=== PATIENT | female | born 1975 | race Caucasian/White ===

== ENCOUNTER 2018-11-30 11:07 | Emergency (ER) | payer MEDICARE, OTHER ==
[~2018-11-30] VITALS: Ht 170.2 cm; Wt 75.7 kg
[~2018-11-30 11:07] MED LIST: ABILIFY30 MG PO; CIPRO500 MG PO; CYMBALTA60 MG PO; DILANTIN100 MG PO; FLAGYL500 MG PO; NEURONTIN300 MG PO; NEXIUM40 MG PO; TRAZODONE HCL100 MG PO
--- OUTSIDE RECORDS SUMMARY | 2018-11-30 11:10 | XMS REPORT ---
Author Author Deneen Penn [employer] Address Unknown Phone Unavailable Care Team Providers Care Casting Tester Name Role Phone Deneen Penn CP Unavailable Allergies No Known Allergies Problems Problem Type Condition Code Onset Dates Condition Status Problem Carpal tunnel syndrome, unspecified upper limb G56.00 Active Problem Deficiency of other specified B group vitamins E53.8 Active Problem Iron deficiency anemia, unspecified D50.9 Active Problem Pain in unspecified joint M25.50 Active Problem Peroneal tendinitis, left leg M76.72 Active Problem Vitamin D deficiency, unspecified E55.9 Active Problem Other hereditary and idiopathic neuropathies G60.8 Active Problem Pain in right foot M79.671 Active Problem Pain in left foot M79.672 Active Problem Plantar fascial fibromatosis M72.2 Active Problem Pain in unspecified foot M79.673 Active Problem Inflammatory polyarthropathy M06.4 Active Problem Bilateral primary osteoarthritis of knee M17.0 Active Problem Calcaneal spur, unspecified foot M77.30 Active Problem Pain in unspecified knee M25.569 Active Problem Tinea unguium B35.1 Active Problem Morbid (severe) obesity due to excess calories E66.01 Active Problem Other idiopathic peripheral autonomic neuropathy G90.09 Active Problem Xerosis cutis L85.3 Active Problem Pain in left shoulder M25.512 Active Problem Rheumatoid arthritis, unspecified M06.9 Active Problem Pain in right hip M25.551 Active Problem Pain in left elbow M25.522 Active Problem Excessive bleeding in the premenopausal period N92.4 Active Problem 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
--- OUTSIDE RECORDS SUMMARY | 2018-11-30 11:10 | XMS REPORT ---
Author Author Deneen Penn [employer] Address Unknown Phone Unavailable Care Team Providers Care Tank Refinisher Name Role Phone Deneen Penn CP Unavailable Allergies, Adverse Reactions, Alerts Substance Reaction Event Type Penicillin Info Not Available Drug Allergy Keflex Info Not Available Drug Allergy Demerol Info Not Available Drug Allergy Problems Problem Type Condition Code Onset Dates Condition Status Assessment Deficiency of other specified B group vitamins E53.8 Active Assessment Pain in unspecified knee M25.569 Active Assessment Vitamin D deficiency, unspecified E55.9 Active Assessment Carpal tunnel syndrome, unspecified upper limb G56.00 Active Assessment Pain in unspecified joint M25.50 Active Assessment Inflammatory polyarthropathy M06.4 Active Assessment Rheumatoid arthritis, unspecified M06.9 Active Problem Carpal tunnel syndrome, unspecified upper limb [...] G90.09 Active Problem Xerosis cutis L85.3 Active Assessment Pain in right hip M25.551 Active Problem Pain in left shoulder M25.512 Active Assessment Bilateral primary osteoarthritis of knee M17.0 Active Problem Rheumatoid arthritis, unspecified M06.9 Active Assessment Pain in left shoulder M25.512 Active Problem Pain in right hip M25.551 Active Assessment Pain in left elbow M25.522 Active Problem Pain in left elbow M25.522 Active Problem Excessive bleeding in the premenopausal period N92.4 Active Assessment Morbid (severe) obesity due to excess calories E66.01 Active Problem 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 Problem Anemia, unspecified D64.9 Active Problem Epilepsy, unspecified, not intractable, without status epilepticus G40.909 Active Medications Medication Code System Code Instructions Start Date End Date Status Dosage Lamictal [facility] 68953669742 150 MG Orally morning 3 in PM Active 2 tablets Potassium NDC 0 800 mg Orally twice a day (bid) Active 1 tablet Lasix [facility] 58634223388 40 mg Orally twice a day (bid) Active 1 tablet Klonopin [facility] 49407277239 0.5 MG Orally Twice a day Active 1 tablet Ketoconazole [facility] 42717243540 2 % Externally Once a day Active 1 application to affected area Duloxetine HCl [facility] 55058023148 60 MG Orally twice a day Active 1 capsule Iron (Ferrous Gluconate) [facility] 58888759595 256 (28 Fe) MG Orally Active not defined Omeprazole [facility] 57162469722 40 MG Orally Once a day Active 1 capsule Lexapro [facility] 22603936764 5 MG Orally Once a day Active 1 tablets Ferrous Sulfate [facility] 84046678689 325 (65 Fe) MG Orally Once a day Active 1 tablet Lac-Hydrin [facility] 33019796649 12 % Externally Twice a day Active 1 application to affected area Plaquenil [facility] 01990166939 200 MG Orally Once a day Active 2 tablets with food or milk Orencia [facility] 44717201685 250 MG Intravenous Active as directed Vitamin D [facility] 96508071493 1000 UNIT Orally Once a day Active 1 capsule Vitamin B12 [facility] 36274618483 1000 Orally Once a day Active 2 tablet Seroquel [facility] 30702170138 300 MG Orally Once a day Active 2 tablet at bedtime Ativan [facility] 60430234976 0.5 MG Orally as needed (prn) Active 1 tablet as needed Vitamin A92-Ojkdv Acid [facility] 09565600940 500-400 MCG Orally 1 Active as directed Sulfasalazine [facility] 40173046621 500 mg Orally twice a day (bid) Active 2 tablets Orencia [facility] 20537422052 250 MG Intravenous Active not defined Dilantin [facility] 10662098521 100 mg Orally three times a day (tid) Active 2 capsule Lamotrigine [facility] 91919051083 25 MG Orally Once a day Active 2 tablets Multi For Her [facility] 60866372717 - Orally Active not defined Vital Signs Date/Time: June 10, 2017 BMI 45.10 Index Weight 288 lbs Blood Pressure Systolic 140 mm Hg Respiratory Rate 16 /min Cardiac Monitoring Heart Rate 89 /min Temperature 98 F Blood Pressure Diastolic 88 mm Hg Results No Known Results Summary Purpose eClinicalWorks Submission
--- OUTSIDE RECORDS SUMMARY | 2018-11-30 11:10 | XMS REPORT | Continuity of Care Document ---
Author Author [facility] Interface Address Unknown Phone Unavailable Problems Problem Status Onset Date Classification Date Reported Comments Source Excessive bleeding in the premenopausal period Active Problem 09/18/2018 [facility] Iron deficiency anemia, unspecified Active Problem 09/18/2018 [facility] Iron deficiency anemia secondary to blood loss Active Problem 09/18/2018 [facility] Tinea unguium Active Problem 09/18/2018 [facility] Deficiency of other specified B group vitamins Active Problem 09/18/2018 [facility] Morbid obesity due to excess calories Active Problem 09/18/2018 [facility] Pain in unspecified knee Active Problem 09/18/2018 [facility] Bilateral primary osteoarthritis of knee Active Problem 09/18/2018 [facility] Xerosis cutis Active Problem 09/18/2018 [facility] Peroneal tendinitis, left leg Active Problem 09/18/2018 [facility] Other hereditary and idiopathic neuropathies Active Problem 09/18/2018 [facility] Pain in right foot Active Problem 09/18/2018 [facility] Pain in left foot Active Problem 09/18/2018 [facility] Pain in unspecified joint Active Problem 09/18/2018 [facility] Inflammatory polyarthropathy Active Problem 09/18/2018 [facility] Carpal tunnel syndrome, unspecified upper limb Active Problem 09/18/2018 [facility] Vitamin D deficiency, unspecified Active Problem 09/18/2018 [facility] Pain in right hip Active Problem 09/18/2018 [facility] Rheumatoid arthritis, unspecified Active Problem 09/18/2018 [facility] Pain in left shoulder Active Problem 09/18/2018 [facility] Epilepsy, unspecified, not intractable, without status epilepticus Active Problem 09/18/2018 [facility] Pain in left elbow Active Problem 09/18/2018 [facility] Anemia, unspecified Active Problem 09/18/2018 [facility] Plantar fascial fibromatosis Active Problem 09/18/2018 [facility] Pain in unspecified foot Active Problem 09/18/2018 [facility] Calcaneal spur, unspecified foot Active Problem 09/18/2018 [facility] Other idiopathic peripheral autonomic neuropathy Active Problem 09/18/2018 [facility] Tinea pedis of both feet Active Problem 09/20/2016 [facility] Onychomycosis Active Problem 09/20/2016 [facility] Sprain of foot, left, subsequent encounter Active Problem 09/20/2016 [facility] Idiopathic neuropathy Active Problem 09/20/2016 [facility] Chronic pain syndrome Active Problem 09/18/2018 [facility] Unilateral primary osteoarthritis, right hip Active Problem 09/18/2018 [facility] Medications Medication Details Route Status Patient Instructions Ordering Provider Order Date Source Lac-Hydrin 1 application to affected area Externally Active 12 % Externally Twice a day [facility] 05/08/2017 [facility] Vitamin [id number] Acid as directed Orally Active 500-400 MCG Orally 1 [facility] 05/08/2017 [facility] Ketoconazole 1 application to affected area Externally Active 2 % Externally Once a day [facility] 05/08/2017 [facility] Metanx 1 tablet Orally Active 3-35-2 MG Orally Twice a day [facility] 03/26/2017 [facility] Lamotrigine 2 tablets Orally Active 25 MG Orally Once a day [facility] Duloxetine HCl 1 capsule Orally Active 60 MG Orally twice a day [facility] Seroquel 2 tablet at bedtime Orally Active 300 MG Orally Once a day [facility] Dilantin 2 capsule Orally Active 100 mg Orally three times a day (tid) [facility] Ativan 1 tablet as needed Orally Active 0.5 MG Orally as needed (prn) [facility] Vitamin B12 2 tablet Orally Active 1000 Orally Once a day [facility] Lexapro 1 tablets Orally Active 5 MG Orally Once a day [facility] Lamictal 2 tablets Orally Active 150 MG Orally morning 3 in PM [facility] Plaquenil 2 tablets with food or milk Orally Active 200 MG Orally Once a day [facility] Sulfasalazine 2 tablets Orally Active 500 mg Orally twice a day (bid) [facility] Potassium 1 tablet Orally Active 800 mg Orally twice a day (bid) [facility] Omeprazole 1 capsule Orally Active 40 MG Orally Once a day [facility] Lasix 1 tablet Orally Active 40 mg Orally twice a day (bid) [facility] Orencia as directed Intravenous Active 250 MG Intravenous [facility] Vitamin D 1 capsule Orally Active 1000 UNIT Orally Once a day [facility] Ferrous Sulfate 1 tablet Orally Active 325 (65 Fe) MG Orally Once a day [facility] Ativan 1 tablet as needed Orally Active 0.5 MG Orally as needed (prn) [facility] Klonopin 1 tablet Orally Active 0.5 MG Orally Twice a day [facility] Dilantin 2 capsule Orally Active 100 mg Orally three times a day (tid) [facility] Ferrous Sulfate 1 tablet Orally Active 325 (65 Fe) MG Orally Once a day [facility] Lexapro 1 tablets Orally Active 5 MG Orally Once a day [facility] Orencia not defined Intravenous Active 250 MG Intravenous [facility] Lamictal 2 tablets Orally Active 150 MG Orally morning 3 in PM [facility] Omeprazole 1 capsule Orally Active 40 MG Orally Once a day [facility] Vitamin D 1 capsule Orally Active 1000 UNIT Orally Once a day [facility] Lasix 1 tablet Orally Active 40 mg Orally twice a day (bid) [facility] Vitamin B12 2 tablet Orally Active 1000 Orally Once a day [facility] Seroquel 2 tablet at bedtime Orally Active 300 MG Orally Once a day [facility] Lamotrigine 2 tablets Orally Active 25 MG Orally Once a day [facility] Duloxetine HCl 1 capsule Orally Active 60 MG Orally twice a day [facility] Plaquenil 2 tablets with food or milk Orally Active 200 MG Orally Once a day [facility] Sulfasalazine 2 tablets Orally Active 500 mg Orally twice a day (bid) [facility] Lasix 1 tablet Orally Active 80 MG Orally twice a day (bid) [facility] Ketoconazole 1 application to affected area Externally Active 2 % Externally Once a day [facility] Lac-Hydrin 1 application to affected area Externally Active 12 % Externally Twice a day [facility] Vitamin B05-Hklso Acid as directed Orally Active 500-400 MCG Orally 1 [facility] Iron (Ferrous Gluconate) not defined Orally Active 256 (28 Fe) MG Orally Alexa [facility] Multi For Her not defined Orally Active - Orally Alexa [facility] Allergies, Adverse Reactions, Alerts Substance Category Reaction Severity Reaction type Status Date Reported Comments Source Penicillin Adverse Reaction Info Not Available Adverse Reaction Active 08/17/2017 [facility] Keflex Adverse Reaction Info Not Available Adverse Reaction Active 08/17/2017 [facility] Demerol Adverse Reaction Info Not Available Adverse Reaction Active 08/17/2017 [facility] Immunizations Immunization Date Given Site Status Last Updated Comments Source Results Order Name Results Value Reference Range Date Interpretation Comments Source Vital Signs Vital Sign Value Date Comments Source Weight 288 08/17/2017 [facility] Systolic (mm Hg) 127 08/17/2017 [facility] Respitory Rate 18 08/17/2017 [facility] Heart Rate 80 08/17/2017 [facility] Temperature Oral (F) 97.5 F 08/17/2017 [facility] Diastolic (mm Hg) 67 08/17/2017 [facility] Weight 288 08/07/2017 [facility] Systolic (mm Hg) 120 08/07/2017 [facility] Respitory Rate 16 08/07/2017 [facility] Heart Rate 79 08/07/2017 [facility] Temperature Oral (F) 97.1 F 08/07/2017 [facility] Diastolic (mm Hg) 60 08/07/2017 [facility] Weight 288 06/10/2017 [facility] Systolic (mm Hg) 140 06/10/2017 [facility] Respitory Rate 16 06/10/2017 [facility] Heart Rate 89 06/10/2017 [facility] Temperature Oral (F) 98 F 06/10/2017 [facility] Diastolic (mm Hg) 88 06/10/2017 [facility] Weight 299 05/18/2017 [facility] Systolic (mm Hg) 138 05/18/2017 [facility] Respitory Rate 14 05/18/2017 [facility] Heart Rate 80 05/18/2017 [facility] Temperature Oral (F) 97.3 F 05/18/2017 [facility] Diastolic (mm Hg) 75 05/18/2017 [facility] Weight 288 05/11/2017 [facility] Systolic (mm Hg) 134 05/11/2017 [facility] Respitory Rate 16 05/11/2017 [facility] Heart Rate 89 05/11/2017 [facility] Temperature Oral (F) 98 F 05/11/2017 [facility] Diastolic (mm Hg) 65 05/11/2017 [facility] Weight 297 04/10/2017 [facility] Systolic (mm Hg) 133 04/10/2017 [facility] Respitory Rate 16 04/10/2017 [facility] Heart Rate 94 04/10/2017 [facility] Temperature Oral (F) 97.7 F 04/10/2017 [facility] Diastolic (mm Hg) 73 04/10/2017 [facility] Weight 300 03/23/2017 [facility] Systolic (mm Hg) 131 03/23/2017 [facility] Respitory Rate 18 03/23/2017 [facility] Heart Rate 76 03/23/2017 [facility] Temperature Oral (F) 97.5 F 03/23/2017 [facility] Diastolic (mm Hg) 70 03/23/2017 [facility] Encounters Location Location Details Encounter Type Encounter Number Reason For Visit Attending Provider ADM Date DC Date Status Source [facility] degenerative changes in my foot [id number] 09/18/2016 09/18/2016 [facility] Procedures Procedure Code Date Perfomer Comments Source
--- OUTSIDE RECORDS SUMMARY | 2018-11-30 11:10 | XMS REPORT ---
Author Author Deneen Penn [employer] Address Unknown Phone Unavailable Care Team Providers Care Wood Router Hand Name Role Phone Deneen Penn CP Unavailable Allergies, Adverse Reactions, Alerts Substance Reaction Event Type Penicillin Info Not Available Drug Allergy Keflex Info Not Available Drug Allergy Demerol Info Not Available Drug Allergy Problems Problem Type Condition Code Onset Dates Condition Status Assessment Morbid (severe) obesity due to excess calories E66.01 Active Assessment Pain in left elbow M25.522 Active Assessment Pain in left shoulder M25.512 Active Assessment Pain in right hip M25.551 Active Assessment Bilateral primary osteoarthritis of knee M17.0 Active Assessment Pain in unspecified knee M25.569 Active Assessment Deficiency of other specified B group vitamins E53.8 Active Assessment Carpal tunnel syndrome, unspecified upper limb G56.00 Active Problem Pain in right hip M25.551 Active Assessment Vitamin D deficiency, unspecified E55.9 Active Problem Rheumatoid arthritis, unspecified M06.9 Active Assessment Pain in unspecified joint M25.50 Active Problem Epilepsy, unspecified, not intractable, without status epilepticus G40.909 Active Problem Excessive bleeding in the premenopausal period N92.4 Active Problem Anemia, unspecified D64.9 Active Problem Pain in right foot M79.671 Active Problem Pain in left foot M79.672 Active Problem Bilateral primary osteoarthritis of knee M17.0 Active Assessment Rheumatoid arthritis, unspecified M06.9 Active Problem Morbid (severe) obesity due to excess calories E66.01 Active Assessment Inflammatory polyarthropathy M06.4 Active Problem Iron deficiency anemia, unspecified D50.9 Active Problem 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 Problem Peroneal tendinitis, left leg M76.72 Active Problem Other hereditary and idiopathic neuropathies G60.8 Active Problem Carpal tunnel syndrome, unspecified upper limb G56.00 Active Problem Vitamin D deficiency, unspecified E55.9 Active Problem Pain in unspecified knee M25.569 Active Problem Deficiency of other specified B group vitamins E53.8 Active Problem Pain in left shoulder M25.512 Active Problem Pain in left elbow M25.522 Active Problem Pain in unspecified joint M25.50 Active Problem Inflammatory polyarthropathy M06.4 Active Medications Medication Code System Code Instructions Start Date End Date Status Dosage Orencia [facility] [address]-81 250 MG Intravenous Active as directed Sulfasalazine [facility] [address]-29 500 mg Orally twice a day (bid) Active 2 tablets Lamotrigine [facility] [address]-11 25 MG Orally Once a day Active 2 tablets Seroquel [facility] [address]-55 300 MG Orally Once a day Active 2 tablet at bedtime Vitamin B12 [facility] 22766-11323 1000 Orally Once a day Active 2 tablet Orencia [facility] [address]-28 250 MG Intravenous Active not defined Ferrous Sulfate [facility] [address]-53 325 (65 Fe) MG Orally Once a day Active 1 tablet Lasix [facility] [address]-84 40 mg Orally twice a day (bid) Active 1 tablet Potassium NDC 0 800 mg Orally twice a day (bid) Active 1 tablet Ativan [facility] [address]-61 0.5 MG Orally as needed (prn) Active 1 tablet as needed Dilantin [facility] [address]-79 100 mg Orally three times a day (tid) Active 2 capsule Vitamin D [facility] 68642-87703 1000 UNIT Orally Once a day Active 1 capsule Metanx [facility] [address]-46 3-35-2 MG Orally Twice a day March 26, 2017 April 25, 2017 Active 1 tablet Lamictal [facility] [address]-28 150 MG Orally morning 3 in PM Active 2 tablets Lexapro [facility] [address]-28 5 MG Orally Once a day Active 1 tablets Duloxetine HCl [facility] [address]-78 60 MG Orally twice a day Active 1 capsule Plaquenil [facility] [address]-51 200 MG Orally Once a day Active 2 tablets with food or milk Omeprazole [facility] [address]-86 40 MG Orally Once a day Active 1 capsule Vital Signs Date/Time: April 10, 2017 BMI 46.51 Index Weight 297 lbs Blood Pressure Systolic 133 mm Hg Respiratory Rate 16 /min Cardiac Monitoring Heart Rate 94 /min Temperature 97.7 F Blood Pressure Diastolic 73 mm Hg Results No Known Results Summary Purpose eClinicalWorks Submission
--- OUTSIDE RECORDS SUMMARY | 2018-11-30 11:10 | XMS REPORT ---
Author Author Vick Liu [facility] [place] eClinicalWorks Address Unknown Phone Unavailable Care Team Providers Care Hoist Operator Name Role Phone Vick Liu CP Unavailable Allergies, Adverse Reactions, Alerts Substance Reaction Event Type Penicillin Info Not Available Drug Allergy Keflex Info Not Available Drug Allergy Demerol Info Not Available Drug Allergy Problems Problem Type Condition Code Onset Dates Condition Status Assessment Iron deficiency anemia, unspecified D50.9 Active Problem Carpal tunnel syndrome, unspecified upper [...] Instructions Start Date End Date Status Dosage Ativan [facility] 53662058675 0.5 MG Orally as needed (prn) Active 1 tablet as needed Klonopin [facility] 63263241946 0.5 MG Orally Twice a day Active 1 tablet Lac-Hydrin [facility] 80372912395 12 % Externally Twice a day May 08, 2017 Nov 04, 2017 Active 1 application to affected area Dilantin [facility] 46494502321 100 mg Orally three times a day (tid) Active 2 capsule Ferrous Sulfate [facility] 36446046092 325 (65 Fe) MG Orally Once a day Active 1 tablet Lexapro [facility] 18097245237 5 MG Orally Once a day Active 1 tablets Orencia [facility] 61333425637 250 MG Intravenous Active as directed Orencia [facility] 94556710311 250 MG Intravenous Active not defined Lamictal [facility] 45734840671 150 MG Orally morning 3 in PM Active 2 tablets Omeprazole [facility] 33941401447 40 MG Orally Once a day Active 1 capsule Vitamin V92-Sxmit Acid [facility] 19969260703 500-400 MCG Orally 1 May 08, 2017 Nov 04, 2017 Active as directed Vitamin D [facility] 30743223409 1000 UNIT Orally Once a day Active 1 capsule Lasix [facility] 96527827709 40 mg Orally twice a day (bid) Active 1 tablet Potassium NDC 0 800 mg Orally twice a day (bid) Active 1 tablet Vitamin B12 [facility] 39742028154 1000 Orally Once a day Active 2 tablet Seroquel [facility] 72473002622 300 MG Orally Once a day Active 2 tablet at bedtime Ketoconazole [facility] 16929801960 2 % Externally Once a day May 08, 2017 Nov 04, 2017 Active 1 application to affected area Lamotrigine [facility] 66043945741 25 MG Orally Once a day Active 2 tablets Duloxetine HCl [facility] 77961123852 60 MG Orally twice a day Active 1 capsule Vital Signs Date/Time: May 18, 2017 BMI 46.82 Index Weight 299 lbs Blood Pressure Systolic 138 mm Hg Respiratory Rate 14 /min Cardiac Monitoring Heart Rate 80 /min Temperature 97.3 F Blood Pressure Diastolic 75 mm Hg Results No Known Results Summary Purpose eClinicalWorks Submission
--- OUTSIDE RECORDS SUMMARY | 2018-11-30 11:10 | XMS REPORT ---
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 Problem Tinea unguium B35.1 Active Problem Deficiency of other specified B group vitamins E53.8 Active Problem Morbid (severe) obesity due to excess calories E66.01 Active Problem Pain in unspecified knee M25.569 Active Problem Bilateral primary osteoarthritis of knee M17.0 Active Problem Xerosis cutis L85.3 Active Problem Peroneal tendinitis, left leg M76.72 Active Problem Other hereditary and idiopathic neuropathies G60.8 Active Problem Pain in right foot M79.671 Active Problem Pain in left foot M79.672 Active Problem Pain in unspecified joint M25.50 Active Problem Inflammatory polyarthropathy M06.4 Active Problem Carpal tunnel syndrome, unspecified upper limb G56.00 Active Problem Vitamin D deficiency, unspecified E55.9 Active Problem Pain in right hip M25.551 Active Problem Rheumatoid arthritis, unspecified M06.9 Active Problem Pain in left shoulder M25.512 Active Problem Epilepsy, unspecified, not intractable, without status epilepticus G40.909 Active Problem Pain in left elbow M25.522 Active Problem Anemia, unspecified D64.9 Active Medications Medication Code System Code Instructions Start Date End Date Status Dosage Metanx [facility] [address]-35 3-35-2 MG Orally Twice a day March 26, 2017 April 25, 2017 Active 1 tablet Results No Known Results Summary Purpose eClinicalWorks Submission
--- OUTSIDE RECORDS SUMMARY | 2018-11-30 11:10 | XMS REPORT ---
Author Author Vick Liu [facility] eClinicalWorks Address Unknown Phone Unavailable Care Team Providers Care Deep Submergence Vehicle Crewmember Name Role Phone Vick Liu CP Unavailable Allergies, Adverse Reactions, Alerts Substance Reaction Event Type Penicillin Info Not Available Drug Allergy Keflex Info Not Available Drug Allergy Demerol Info Not Available Drug Allergy Problems Problem Type Condition Code Onset Dates Condition Status Problem Pain in left elbow M25.522 Active Problem Rheumatoid arthritis, unspecified M06.9 Active Problem Pain in right hip M25.551 Active Problem Other hereditary and idiopathic neuropathies G60.8 Active Problem Iron deficiency anemia, unspecified D50.9 Active Problem Pain in right foot M79.671 Active Problem Anemia, unspecified D64.9 Active Problem Epilepsy, unspecified, not intractable, without status epilepticus G40.909 Active Problem 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 Problem Excessive bleeding in the premenopausal period N92.4 Active Problem Bilateral primary osteoarthritis of knee M17.0 Active Problem Pain in unspecified knee M25.569 Active Assessment Iron deficiency anemia, unspecified D50.9 Active Problem Vitamin D deficiency, unspecified E55.9 Active Problem Pain in unspecified joint M25.50 Active Problem Deficiency of other specified B group vitamins E53.8 Active Problem Inflammatory polyarthropathy M06.4 Active Problem Carpal tunnel syndrome, unspecified upper limb G56.00 Active Problem Pain in left shoulder M25.512 Active Medications Medication Code System Code Instructions Start Date End Date Status Dosage Lamotrigine [facility] [address]-10 25 MG Orally Once a day Active 2 tablets Duloxetine HCl [facility] [address]-14 60 MG Orally twice a day Active 1 capsule Seroquel [facility] [address]-31 300 MG Orally Once a day Active 2 tablet at bedtime Dilantin [facility] [address]-78 100 mg Orally three times a day (tid) Active 2 capsule Ativan [facility] [address]-80 0.5 MG Orally as needed (prn) Active 1 tablet as needed Vitamin B12 [facility] 9[address] 1000 Orally Once a day Active 2 tablet Lexapro [facility] [address]-84 5 MG Orally Once a day Active 1 tablets Lamictal [facility] [address]-67 150 MG Orally morning 3 in PM Active 2 tablets Plaquenil [facility] [address]-38 200 MG Orally Once a day Active 2 tablets with food or milk Sulfasalazine [facility] [address]-39 500 mg Orally twice a day (bid) Active 2 tablets Potassium NDC 0 800 mg Orally twice a day (bid) Active 1 tablet Omeprazole [facility] [address]-44 40 MG Orally Once a day Active 1 capsule Lasix [facility] [address]-10 40 mg Orally twice a day (bid) Active 1 tablet Orencia [facility] [address]-04 250 MG Intravenous Active not defined Vitamin D [facility] [address] 1000 UNIT Orally Once a day Active 1 capsule Ferrous Sulfate [facility] [address]-47 325 (65 Fe) MG Orally Once a day Active 1 tablet Vital Signs Date/Time: March 23, 2017 BMI 46.98 Index Weight 300 lbs Blood Pressure Systolic 131 mm Hg Respiratory Rate 18 /min Cardiac Monitoring Heart Rate 76 /min Temperature 97.5 F Blood Pressure Diastolic 70 mm Hg Results No Known Results Summary Purpose eClinicalWorks Submission
--- OUTSIDE RECORDS SUMMARY | 2018-11-30 11:10 | XMS REPORT ---
Author Author Deneen Penn eClinicalWorks Address Unknown Phone Unavailable Care Team Providers Care Sports Marketing Internship Name Role Phone Deneen Penn CP Unavailable Allergies, Adverse Reactions, Alerts Substance Reaction Event Type Penicillin Info Not Available Drug Allergy Keflex Info Not Available Drug Allergy Demerol Info Not Available Drug Allergy Problems Problem Type Condition Code Onset Dates Condition Status Assessment Bilateral primary osteoarthritis of knee M17.0 Active Assessment Pain in right hip M25.551 Active Assessment Deficiency of other specified B group vitamins E53.8 Active Assessment Pain in unspecified knee M25.569 Active Assessment Carpal tunnel syndrome, unspecified upper limb G56.00 Active Assessment Vitamin D deficiency, unspecified E55.9 Active Assessment Pain in unspecified joint M25.50 Active Assessment Inflammatory polyarthropathy M06.4 Active Assessment Rheumatoid arthritis, unspecified M06.9 Active Problem Excessive bleeding in the premenopausal period N92.4 Active Problem Carpal tunnel syndrome, unspecified upper limb G56.00 Active Problem 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 Problem Deficiency of other specified B group vitamins E53.8 Active Problem Iron deficiency anemia, unspecified D50.9 Active Problem Pain in right foot M79.671 Active Problem Pain in left foot M79.672 Active Problem Pain in unspecified foot M79.673 Active Problem Xerosis cutis L85.3 Active Problem Pain in unspecified knee M25.569 Active Problem Vitamin D deficiency, unspecified E55.9 Active Problem Other idiopathic peripheral autonomic neuropathy G90.09 Active Problem Pain in unspecified joint M25.50 Active Problem Other hereditary and idiopathic neuropathies G60.8 Active Problem Peroneal tendinitis, left leg M76.72 Active Problem Tinea unguium B35.1 Active Problem Morbid (severe) obesity due to excess calories E66.01 Active Assessment Pain in left shoulder M25.512 Active Problem Pain in right hip M25.551 Active Assessment Pain in left elbow M25.522 Active Problem Pain in left elbow M25.522 Active Problem Bilateral primary osteoarthritis of knee M17.0 Active Assessment Morbid (severe) obesity due to excess calories E66.01 Active Problem Inflammatory polyarthropathy M06.4 Active Problem Anemia, unspecified D64.9 Active Problem Epilepsy, unspecified, not intractable, without status epilepticus G40.909 Active Problem Pain in left shoulder M25.512 Active Problem Rheumatoid arthritis, unspecified M06.9 Active Medications Medication Code System Code Instructions Start Date End Date Status Dosage Dilantin [facility] 00935858158 100 mg Orally three times a day (tid) Active 2 capsule Lamictal [facility] 01779750572 150 MG Orally morning 3 in PM Active 2 tablets Seroquel [facility] 53653116667 300 MG Orally Once a day Active 2 tablet at bedtime Lasix [facility] 72765079855 40 mg Orally twice a day (bid) Active 1 tablet Vitamin O71-Nutwy Acid [facility] 35163682369 500-400 MCG Orally 1 May 08, 2017 Nov 04, 2017 Active as directed Orencia [facility] 00117708139 250 MG Intravenous Active as directed Ketoconazole [facility] 95257543333 2 % Externally Once a day May 08, 2017 Nov 04, 2017 Active 1 application to affected area Ativan [facility] 37761484904 0.5 MG Orally as needed (prn) Active 1 tablet as needed Duloxetine HCl [facility] 29585954528 60 MG Orally twice a day Active 1 capsule Orencia [facility] 80476814736 250 MG Intravenous Active not defined Plaquenil [place] 90084741116 200 MG Orally Once a day Active 2 tablets with food or milk Sulfasalazine ND 26269398649 500 mg Orally twice a day (bid) Active 2 tablets Vitamin D [facility] 14397888786 1000 UNIT Orally Once a day Active 1 capsule Klonopin [place] 68720779673 0.5 MG Orally Twice a day Active 1 tablet Omeprazole ND 95867141582 40 MG Orally Once a day Active 1 capsule Lexapro ND 55974798221 5 MG Orally Once a day Active 1 tablets Vitamin B12 [facility] 56116472209 1000 Orally Once a day Active 2 tablet Ferrous Sulfate [facility] 85515003994 325 (65 Fe) MG Orally Once a day Active 1 tablet Potassium NDC 0 800 mg Orally twice a day (bid) Active 1 tablet Lamotrigine [facility] 32537637119 25 MG Orally Once a day Active 2 tablets Lac-Hydrin [facility] 55625706831 12 % Externally Twice a day May 08, 2017 Nov 04, 2017 Active 1 application to affected area Vital Signs Date/Time: May 11, 2017 BMI 45.10 Index Weight 288 lbs Blood Pressure Systolic 134 mm Hg Respiratory Rate 16 /min Cardiac Monitoring Heart Rate 89 /min Temperature 98 F Blood Pressure Diastolic 65 mm Hg Results No Known Results Summary Purpose eClinicalWorks Submission
--- OUTSIDE RECORDS SUMMARY | 2018-11-30 11:11 | XMS REPORT ---
Author Author Deneen Penn eClinicalWorks Address Unknown Phone Unavailable Care Team Providers Care Professor Of Environmental Science Name Role Phone Deneen Penn CP Unavailable [...] Start Date End Date Status Dosage Dilantin [facility] 17727238518 100 mg Orally three times a day (tid) Active [address] [facility] 01877087302 5 MG Orally Once a day Active [address] [facility] 22475514991 80 MG Orally twice a day (bid) Active [address] [facility] 21284274582 0.5 MG Orally Twice a day Active [address] [facility] 25595702655 2 % Externally Once a day Active 1 application to affected area Ferrous Sulfate [facility] 51765945957 325 (65 Fe) MG Orally Once a day Active [address] [facility] 66230777842 250 MG Intravenous Active as directed Omeprazole [facility] 43723903881 40 MG Orally Once a day Active 1 capsule Potassium [place] 0 800 mg Orally twice a day (bid) Active 1 tablet Vitamin D [facility] 66073569670 1000 UNIT Orally Once a day Active 1 capsule Lac-Hydrin [facility] 58444149902 12 % Externally Twice a day Active 1 application to affected area Plaquenil [facility] 67224271452 200 MG Orally Once a day Active 2 tablets with food or milk Vitamin B12 [facility] 52751901962 1000 Orally Once a day Active 2 tablet Vitamin N50-Hhwmb Acid [facility] 36377646667 500-400 MCG Orally 1 Active as directed Duloxetine HCl [facility] 44844090977 60 MG Orally twice a day Active [address] [facility] 34628162999 300 MG Orally Once a day Active 2 tablet at bedtime Ativan [facility] 33109288253 0.5 MG Orally as needed (prn) Active 1 tablet as needed Iron (Ferrous Gluconate) [facility] 33222996423 256 (28 Fe) MG Orally Active not defined Sulfasalazine [facility] 67851951325 500 mg Orally twice a day (bid) Active [address] [facility] 19064835511 250 MG Intravenous Active not defined Lamictal [facility] 44373276195 150 MG Orally morning 3 in PM Active [address] [facility] 40873866959 25 MG Orally Once a day Active 2 tablets Multi For Her [facility] 71806288647 - Orally Active not defined Vital Signs Date/Time: Aug 07, 2017 BMI 45.10 Index Weight 288 lbs Blood Pressure Systolic 120 mm Hg Respiratory Rate 16 /min Cardiac Monitoring Heart Rate 79 /min Temperature 97.1 F Blood Pressure Diastolic 60 mm Hg Results No Known Results Summary Purpose eClinicalWorks Submission
--- OUTSIDE RECORDS SUMMARY | 2018-11-30 11:11 | XMS REPORT ---
Author Author [facility] Address Unknown Phone Unavailable Care Team Providers Care Landscaper Name Role Phone Unavailable Unavailable Payers Payer Name Policy Type Policy Number Effective Date Expiration Date Problems This patient has no known problems. Allergies, Adverse Reactions, Alerts Allergy Name Allergy Type Status Severity Reaction(s) Onset Date Inactive Date Treating Clinician Comments meperidine HCl DA Active 2018-02-14 00:00:00 Penicillins DA Active SV 2018-02-14 00:00:00 cephalexin DA Active SV 2018-02-14 00:00:00 amoxicillin DA Active SV 2018-02-14 00:00:00 ADHESIVES DA Active 2017-10-09 00:00:00 Medications This patient has no known medications.
--- OUTSIDE RECORDS SUMMARY | 2018-11-30 11:11 | XMS REPORT ---
Author Author Eddie Walton Organization eClinicalWorks Address Unknown Phone Unavailable Care Team Providers Care Lead Network Architect Name Role Phone Eddie Walton CP Unavailable [...]
--- OUTSIDE RECORDS SUMMARY | 2018-11-30 11:11 | XMS REPORT ---
Author Author Quinton Julian [facility] eClinicalWorks Address Unknown Phone Unavailable Care Team Providers Care Oil Extractor Name Role Phone Quinton Julian Unavailable Encounters Encounter Location Date degenerative changes in my foot [facility] Sep 18, 2016 Problems Problem Type Condition ICD-9 Code Onset Dates Condition Status Problem Tinea pedis of both feet B35.3 Active Problem Onychomycosis B35.1 Active Problem Sprain of foot, left, subsequent encounter S93.602D Active Problem Idiopathic neuropathy G60.9 Active Problem Morbid obesity due to excess calories E66.01 Active Social History Social History Element Qualifiers Date Reported Do you smoke? . Answer: Yes Sep 19, 2016 Do you drink alcohol? . Status: No Sep 19, 2016 Occupation: . Disabled Sep 19, 2016 Family history Qualifier Description Comment Date Reported Maternal Grandmother Comment not available Sep 19, 2016 Paternal Grandmother Comment not available Sep 19, 2016 Siblings Comment not available Sep 19, 2016 Maternal Grandfather Comment not available Sep 19, 2016 Children Comment not available Sep 19, 2016 Adopted Comment not available Sep 19, 2016 Father heart disease Sep 19, 2016 Paternal Grandfather Comment not available Sep 19, 2016 Mother diabetes , heart disease Sep 19, 2016 Other: Comment not available Sep 19, 2016 Summary Purpose eClinicalWorks Submission
--- OUTSIDE RECORDS SUMMARY | 2018-11-30 11:11 | XMS REPORT ---
Author Author Vick Liu [facility] eClinicalWorks Address Unknown Phone Unavailable Care Team Providers Care Run Lead Name Role Phone Vick Liu CP Unavailable [...] Instructions Start Date End Date Status Dosage Duloxetine HCl [facility] 83783668419 60 MG Orally twice a day Active 1 capsule Iron (Ferrous Gluconate) [facility] 00153692344 256 (28 Fe) MG Orally Active not defined Lamotrigine [facility] 92189680987 25 MG Orally Once a day Active 2 tablets Dilantin [facility] 65494537326 100 mg Orally three times a day (tid) Active 2 capsule Potassium NDC 0 800 mg Orally twice a day (bid) Active 1 tablet Klonopin [facility] 90426806494 0.5 MG Orally Twice a day Active 1 tablet Lexapro [facility] 24818049484 5 MG Orally Once a day Active 1 tablets Orencia [facility] 91928718979 250 MG Intravenous Active not defined Ativan [facility] 49885611719 0.5 MG Orally as needed (prn) Active 1 tablet as needed Seroquel [facility] 92439998186 300 MG Orally Once a day Active 2 tablet at bedtime Lac-Hydrin [facility] 84453719157 12 % Externally Twice a day Active 1 application to affected area Ketoconazole [facility] 91406573128 2 % Externally Once a day Active 1 application to affected area Lamictal [facility] 41198741555 150 MG Orally morning 3 in PM Active 2 tablets Lasix [facility] 32509917599 80 MG Orally twice a day (bid) Active 1 tablet Orencia [facility] 20781971453 250 MG Intravenous Active as directed Multi For Her [facility] 85913140756 - Orally Active not defined Omeprazole [facility] 24355526175 40 MG Orally Once a day Active 1 capsule Vital Signs Date/Time: Aug 17, 2017 BMI 45.10 Index Weight 288 lbs Blood Pressure Systolic 127 mm Hg Respiratory Rate 18 /min Cardiac Monitoring Heart Rate 80 /min Temperature 97.5 F Blood Pressure Diastolic 67 mm Hg Results No Known Results Summary Purpose eClinicalWorks Submission
--- OUTSIDE RECORDS SUMMARY | 2018-11-30 11:11 | XMS REPORT ---
Author Author Vick Liu Organization eClinicalWorks Address Unknown Phone Unavailable Care Team Providers Care Optical Element Coater Name Role Phone Vick Liu CP Unavailable Allergies No Known Allergies Problems Problem Type Condition Code Onset Dates Condition Status Problem Carpal tunnel syndrome, unspecified upper limb G56.00 Active Problem Deficiency of other specified B group vitamins E53.8 Active Problem Pain in unspecified joint M25.50 Active Problem Vitamin D deficiency, unspecified E55.9 Active Problem Pain in unspecified knee M25.569 Active Problem Pain in left foot M79.672 Active Problem Bilateral primary osteoarthritis of knee M17.0 Active Problem Pain in right foot M79.671 Active Problem Inflammatory polyarthropathy M06.4 Active Problem Morbid (severe) obesity due to excess calories E66.01 Active Problem Xerosis cutis L85.3 Active Problem Tinea unguium B35.1 Active Problem Chronic pain syndrome G89.4 Active Problem Chronic pain syndrome G89.4 Active Problem Pain in left shoulder M25.512 Active Problem Pain in left elbow M25.522 Active Problem Unilateral primary osteoarthritis, right hip M16.11 Active Problem Pain in right hip M25.551 Active Problem Pain in unspecified foot M79.673 Active Problem Other idiopathic peripheral autonomic neuropathy G90.09 Active Problem Plantar fascial fibromatosis M72.2 Active Problem Calcaneal spur, unspecified foot M77.30 Active Problem Epilepsy, unspecified, not intractable, without status epilepticus G40.909 Active Problem Excessive bleeding in the premenopausal period N92.4 Active Problem Rheumatoid arthritis, unspecified M06.9 Active Problem Anemia, unspecified D64.9 Active Problem Peroneal tendinitis, left leg M76.72 Active Problem 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
[2018-11-30] MEDS ORDERED: LORAZEPAM 1 MG TAB PO ONE (11:45)
[2018-11-30 12:53] VITALS: BP 112/70
== END 2018-11-30 13:10 | disposition home or self-care (01) ==
LOC: FSED 11:07
DX: G25.0 Essential tremor (principal); G40.909 Epilepsy, unspecified, not intractable, without status epilepticus; F31.9 Bipolar disorder, unspecified; M06.9 Rheumatoid arthritis, unspecified
CPT/HCPCS: 99282

== ENCOUNTER 2018-12-07 09:38 | Emergency (ER) | payer MEDICARE, OTHER ==
[~2018-12-07] VITALS: Ht 170.2 cm; Wt 75.7 kg
[2018-12-07] MEDS ORDERED: TETANUS/DIPHTHERIA TOX ADULT 0.5 ML SYR IM ONE (10:00)
--- NOTE | 2018-12-07 10:16 | Diagnostic Imaging Report ---
Exam: Left Hand Series. History: Trauma to base of thumb by dog Comparison: None. Findings: No evidence of acute fracture or malalignment. There is soft tissue edema in the thumb, index finger, and thenar eminence. No evidence of radiopaque foreign body. Impression: No acute osseous abnormality. Soft tissue edema at the thumb, index finger, and thenar eminence. Signed by: Dr. Aspen Irvin MD on 12/07/2018 10:13 AM
[2018-12-07] MEDS ORDERED: CLINDAMYCIN HC150 MG PO (10:30)
[2018-12-07 11:12] VITALS: BP 133/79
== END 2018-12-07 11:06 | disposition home or self-care (01) ==
LOC: FSED 09:38
DX: S60.222A Contusion of left hand, initial encounter (principal); S60.512A Abrasion of left hand, initial encounter; W22.09XA Striking against other stationary object, initial encounter; Y92.007 Garden or yard of unspecified non-institutional (private) residence as the place of occurrence of the external cause; F17.210 Nicotine dependence, cigarettes, uncomplicated
CPT/HCPCS: 90714; 99282

== ENCOUNTER 2020-10-12 14:39 | Emergency (ER) | payer MEDICARE, OTHER ==
[~2020-10-12] VITALS: Ht 170.2 cm; Wt 95.5 kg
[~2020-10-12 14:39] MED LIST changes: +CLINDAMYCIN HC150 MG PO
--- NOTE | 2020-10-12 15:14 | Emergency Department Note ---
History of Present Illnes History of Present Illness Chief Complaint: left hip/posterior thigh pain s/p slip and fall History of Present Illness This is a 44 year old female . Historian: Patient Arrival Mode: Car History limited by: condition of the patient (normal) Medical Manager Required: No Onset (how long ago): day(s) (1) Location: left hip Quality: sharp Radiation: Reports non-radiation Severity: moderate Onset quality: sudden Duration (how long): day(s) (1) Timing of current episode: constant Progression: unchanged Chronicity: new Context: Reports trauma/injury; Denies recent illness, Denies recent surgery, Denies recent immobilization, Denies recent travel, Denies new medications, Denies hx of DVT/PE, Denies non- compliance w/ medications Relieving factors: none Exacerbating factors: movement Associated symptoms: Reports denies other symptoms Treatments prior to arrival: none Past Medical/Family History Physician Review I have reviewed the patient's past medical and family history. Any updates have been documented here. Past Medical History Recent Fever: No Clinical Suspicion of Infectio: No New/Unexplained Change in Ment: No Past Medical History: Seizure Disorder, Other Mental Illness Other Medical History: RA epilepsy bipolar Past Surgical History: Cholecysctectomy, Tubal Ligation, , Lumpectomy, Bariatric Surgery, Colon Resection Other Surgery: shoulder surgery Social History Smoking Cessation: Current every day smoker Counseling Performed: Yes Alcohol Use: None Any Illegal Drug Use: No Physically hurt or threatened: No Other Last Tetanus: unk Any Pre-Existing Lines (PICC,: No Review of Systems Review of Systems Constitutional: Reports no symptoms EENTM: Reports no symptoms Cardiovascular: Reports no symptoms Respiratory: Reports no symptoms Gastrointestinal: Reports no symptoms Genitourinary: Reports no symptoms Musculoskeletal: Reports as per HPI Integumentary: Reports no symptoms Neurological: Reports no symptoms Psychological: Reports no symptoms Endocrine: Reports no symptoms Hematological/Lymphatic: Reports no symptoms Review of other systems: All other systems negative Physical Exam Related Data Allergies: Coded Allergies: Cephalexin Monohydrate (Verified Allergy, Intermediate, HIVES, 09/04/13) Penicillins (Verified Allergy, Intermediate, HIVES, 09/04/13) ketamine (Verified Allergy, Unknown, 10/12/20) meperidine HCl (Verified Allergy, Unknown, SEIZURES, 10/6/13) Uncoded Allergies: cillins (Allergy, Intermediate, rash/hives, 10/12/20) Triage Vital Signs Vital Signs Date Time Temp Pulse Resp B/P (MAP) Pulse Ox O2 Delivery O2 Flow Rate FiO2 10/12/20 14:45 99.0 82 18 121/69 99 Room Air Vital signs reviewed: Yes Physical Exam CONSTITUTIONAL Constitutional: Present well-developed, Present well-nourished HENT HENT: Present normocephalic, Present atraumatic, Present oropharynx clear/moist, Present nose normal HENT L/R: Present left ext ear normal, Present right ext ear normal EYES Eyes: Reports PERRL, Reports conjunctivae normal NECK Neck: Present ROM normal PULMONARY Pulmonary: Present effort normal, Present breath sounds normal CARDIOVASCULAR Cardiovascular: Present regular rhythm, Present heart sounds normal, Present capillary refill normal, Present normal rate GASTROINTESTINAL Abdominal: Present soft, Present nontender, Present bowel sounds normal GENITOURINARY Genitourinary: Present exam deferred SKIN Skin: Present warm, Present dry MUSCULOSKELETAL Musculoskeletal: Present ROM normal, Present tenderness (left hip/superior and posterior quadricep) NEUROLOGICAL Neurological: Present alert, Present oriented x 3, Present no gross motor or sensory deficits PSYCHOLOGICAL Psychological: Present mood/affect normal, Present judgement normal Results Imaging Imaging results reviewed: Yes Impressions [place] [id number] Patient Name: SAFIA CHAIREZ MR #: [id number] : 1975 Age/Sex: 44/F Req #: [id number] Adm Physician: Ordered by: JUAN WOODS Report #: [id number] Location: [facility] Room/Bed: Procedure: [id number] HOPD/FEMUR 2VIEW LT - [facility] Exam Date: 10/12/20 Exam Time: 1528 REPORT STATUS: Signed EXAM: FEMUR 2VIEW LT - H[facility], HIP 2VW LT W/PELVIS - HOPD DATE: 10/12/2020 3:28 PM INDICATION: Fall COMPARISON: None FINDINGS: There is no evidence for acute fracture or dislocation within the pelvis, left hip, or left femur. The femoral heads maintain a normal relationship with the acetabula. The surrounding soft tissues are unremarkable without evidence for radiopaque foreign body. Phleboliths are noted within the pelvis. IMPRESSION: No acute radiographic abnormality identified within the pelvis, left hip, or left femur. Signed by: Dr. Cory Muse MD on 10/12/2020 3:45 PM Dictated By: CORY MUSE MD 44 Transcribed By: KELLIE on 10/12/201544 COPY TO: JUAN WOODS~ Assessment & Plan Medical Decision Making MDM contusion, fracture Assessment & Plan Final Impression: (1) Contusion Depart Disposition: HOME, SELF-CARE Last Vital Signs Date Time Temp Pulse Resp B/P (MAP) Pulse Ox O2 Delivery O2 Flow Rate FiO2 10/12/20 14:45 99.0 82 18 121/69 99 Room Air Home Meds Active Scripts Cyclobenzaprine Hcl (FLEXERIL) 5 Mg Tablet, 10 MG PO Q8H PRN for MUSCLE SPASMS, #30 TAB TAKE AFTER PREDNISONE TO CONTROL PAIN IF NEEDED Prov:JUAN WOODS 10/12/20 Prednisone (PREDNISONE) 20 Mg Tab, 60 MG PO DAILY PRN for MODERATE PAIN (4-6), #15 TAB take all 3 pills at once PRN PAIN Prov:JUAN WOODS 10/12/20 Clindamycin Hcl (CLINDAMYCIN HCL) 150 Mg Capsule, 300 MG PO QID for 7 Days, #30 Prov:ROSARIO HERNANDEZ MD 12/07/18 Reported Medications Ciprofloxacin Hcl (CIPRO) 500 Mg Tablet, 1 TAB PO BID 09/04/13 Metronidazole (FLAGYL) 500 Mg Tablet, 1 TAB PO TID 09/04/13 Esomeprazole Magnesium (NEXIUM) 40 Mg Capsule., 1 CAP PO RDAILY 09/04/13 Gabapentin (NEURONTIN) 300 Mg Capsule, 1 CAP PO BID 09/04/13 Phenytoin Sodium Extended (DILANTIN) 100 Mg Capsule, 6 CAP PO RDAILY 09/04/13 Trazodone Hcl (TRAZODONE HCL) 100 Mg Tablet, 1 TAB PO RDAILY 09/04/13 Duloxetine Hcl (CYMBALTA) 60 Mg Capsule.dr, 1 CAP PO RDAILY 09/04/13 Aripiprazole (ABILIFY) 30 Mg Tablet, 1 TAB PO RDAILY 09/04/13 Medications in the ED Ketorolac Tromethamine 60 mg ONCE ONCE IM ; Start 10/12/20 at 15:15; Stop 10/12/20 at 15:16; Status UNJUAN WILLOUGHBY Oct 12, 2020 15:14
[2020-10-12] MEDS ORDERED: KETOROLAC TROMETHAMINE 60 MG/2 ML VIAL IM ONE (15:15)
[2020-10-12] MEDS ORDERED: KETOROLAC TROMETHAMINE 60 MG/2 ML VIAL ONE (15:18)
--- NOTE | 2020-10-12 15:49 | Diagnostic Imaging Report ---
EXAM: FEMUR 2VIEW LT - HOPD, HIP 2VW LT W/PELVIS - HOPD DATE: 10/12/2020 3:28 PM INDICATION: Fall COMPARISON: None FINDINGS: There is no evidence for acute fracture or dislocation within the pelvis, left hip, or left femur. The femoral heads maintain a normal relationship with the acetabula. The surrounding soft tissues are unremarkable without evidence for radiopaque foreign body. Phleboliths are noted within the pelvis. IMPRESSION: No acute radiographic abnormality identified within the pelvis, left hip, or left femur. Signed by: Dr. Cory Muse MD on 10/12/2020 3:45 PM
[2020-10-12 16:03] VITALS: BP 106/62
[2020-10-12] MEDS ORDERED: CYCLOBENZAPRINE5 MG PO (16:06)
[2020-10-12] MEDS ORDERED: PREDNISONE20 MG PO (16:06)
--- OUTSIDE RECORDS SUMMARY | 2020-10-12 16:07 | XMS REPORT | Continuity of Care Document ---
Author Author [facility] t Organization [facility] Address [address] [place] [address] Phone Unavailable Care Team Providers Care Glass Tinter Name Role Phone Jeovany COVINGTON M.D. PCP Estefany WOODS Attphys Unavailable Gavin Simon MD Attphys Joseline Chua MA Attphys Unavailable Nuris HERNANDEZ Attphys Unavailable Payers Payer Name Policy Type Policy Number Effective Date Expiration Date Jeovany cardenas MEDICAREMEDICARE PART A AND [id number] 2010-PresentKATHERYN HERNANDEZ [place]are [id number] 2011 00:00:00 Beulah Islam [id number] 2015-PresentMedicaid [id number] 2016 00:00:00 [facility] Medicaid [id number] 2016 00:00:00 [facility] Medicare A & B [id number] 2011 00:00:00 C [facility] Problems Condition Name Condition Details Condition Category Status Onset Date Resolution Date Last Treatment Date Treating Clinician Comments Source Bronchitis Bronchitis Problem Active C [facility] Excessive bleeding in the premenopausal period Excessive bleeding in the premenopausal period Active Problem 10/02/2020 [facility] Problem Active 2020-10-02 03:45:05 Carlos A Waterman Iron deficiency anemia, unspecified Iron deficiency anemia, unspecified Active Problem 10/02/2020 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 Problem Active 2020-10-02 03:45 :05 Joe Waterman Tinea unguium Sissy a unguium Active Problem 10/02/2020 [facility] Problem Active 2020-10-02 03:45 :05 Joe Waterman Deficiency of other specified B group vitamins Deficiency of other specified B group vitamins Active Diagnosis 10/02/2020 [facility] Diagnosis Active 2020-10-02 03:45:05 Joe Waterman Morbid (severe) obesity due to excess calories Morbid (severe) obesity due to excess calories Active Problem 10/02/2020 [facility] Problem Active 2020-10-02 03:45:05 Carlos A Waterman Pain in unspecified knee Pain in unspecified knee Active Diagnosis 10/02/2020 [facility] Diagnosis Active 2020-10-02 03:45:05 Joe Waterman Bilateral primary osteoarthritis of knee Bilateral primary osteoarthritis of knee Active Diagnosis 10/02/2020 [facility] Diagnosis Active 2020-10-02 03:45:05 Joe Waterman Xerosis cutis Xero sis cutis Active Problem 10/02/2020 [facility] Problem Active 2020-10-02 03:45 :05 Joe Waterman Peroneal tendinitis, left leg Peroneal tendinitis, left leg Active Problem 10/02/2020 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 Problem Active 2020-10-02 03:45:05 Carols A Waterman Pain in right foot Pain in right foot Active Problem 10/02/2020 [facility] Problem Active 2020-10-02 03:45 :05 [facility] Pain in left foot Pain in left foot Active Problem 10/02/2020 [facility] Problem Active 2020-10-02 03:45 :05 [facility] Pain in unspecified joint Pain in unspecified joint Active Diagnosis 10/02/2020 [facility] Diagnosis Active 2020-10-02 03:45:05 Joe Waterman Inflammatory polyarthropathy I nflammatory polyarthropathy Active Diagnosis 10/02/2020 [facility] Diagnosis Active 2020-10-02 03:45:05 [facility] Carpal tunnel syndrome, unspecified upper limb Carpal tunnel syndrome, unspecified upper limb Active Diagnosis 10/02/2020 [facility] Diagnosis Active 2020-10-02 03:45:05 Me moriashish Waterman Vitamin D deficiency, unspecified Vitamin D deficiency, unspecified Active Diagnosis 10/02/2020 [facility] Diagnosis Act nick 2020-10-02 03:45:05 [facility] Pain in right hip Pain in right hip Active Diagnosis 10/02/2020 [facility] Diagnosis Active 2020-10-02 03: 45:05 Joe Waterman Rheumatoid arthritis, unspecified Rheumatoid arthritis, unspecified Active Diagnosis 10/02/2020 [facility] Diagnosis Act nick 2020-10-02 03:45:05 [facility] Pain in left shoulder Pain in left shoulder Active Diagnosis 10/02/2020 [facility] Diagnosis Active 03:45:05 Joe Waterman Epilepsy, unspecified, not intractable, without status epilepticus Epilepsy, unspecified, not intractable, without status epilepticus Active Problem 10/02/2020 [facility] Problem Active 2020-10-02 03:45:05 [facility] Pain in left elbow Pain in left elbow Active Diagnosis 10/02/2020 [facility] Diagnosis Active 2020-10-02 03: 45:05 Joe Waterman Anemia, unspecified Anem ia, unspecified Active Problem 10/02/2020 [facility] Problem Active 2020-10-02 03:45 :05 Joe Waterman Other idiopathic peripheral autonomic neuropathy Other idiopathic peripheral autonomic neuropathy Active Problem 10/02/2020 [facility] Problem Active 2020-10-02 03:45:05 [facility] Plantar fascial fibromatosis P lantar fascial fibromatosis Active Problem 10/02/2020 [facility] Problem Active 2020-10-02 03:45:05 Joe Waterman Pain in unspecified foot Pain in unspecified foot Active Problem 10/02/2020 [facility] Problem Active 2020-10-02 03:45:05 Joe Waterman Unilateral primary osteoarthritis, left knee Unilateral primary osteoarthritis, left knee Active Problem 10/02/2020 [facility] Problem Active 2020-10-02 03:45:05 Carlos A Waterman Rheumatoid arthritis without rheumatoid factor, multip le sites Rheumatoid arthritis without rheumatoid factor, multiple sites Active Problem 10/02/2020 [facility] Problem Active 2020-10-02 03:45:05 Joe Waterman Unilateral primary osteoarthritis, right knee Unilateral primary osteoarthritis, right knee Active Problem 10/02/2020 [facility] Problem Active 2020-10-02 03:45:05 Carlos A Waterman Chronic pain syndrome Log Manager casandra pain syndrome Active Problem 10/02/2020 [facility] Problem Active 2020-10-02 03:45:05 Joe Waterman Calcaneal spur, unspecified foot Calcaneal spur, unspecified foot Active Problem 10/02/2020 [facility] Problem Active 2020-10-02 03:45:05 Joe Waterman Unilateral primary osteoarthritis, right hip Unilateral primary osteoarthritis, right hip Active Problem 10/02/2020 [facility] Problem Active 2020-10-02 03:45:05 Carlos A Waterman Tinea pedis of both feet Sissy a pedis of both feet Active Problem 09/20/2016 [facility] Problem Active 2016-09-20 02:45:02 Joe Waterman Onychomycosis Onyc homycosis Active Problem 09/20/2016 [facility] Problem Active 2016-09-20 02:45:02 Joe Waterman Sprain of foot, left, subsequent encounter Sprain of foot, left, subsequent encounter Active Problem 09/20/2016 [facility] Problem Active 2016-09-20 02:45:02 Carlos A Waterman Idiopathic neuropathy Idio pathic neuropathy Active Problem 09/20/2016 [facility] Problem Active 2016-09-20 02 :45:02 Joe Waterman Morbid obesity due to excess calories Morbid obesity due to excess calories Active Problem 09/20/2016 [facility] Problem Active 2016-09-20 02:45:02 [facility] Spondylosis without myelopathy or radiculopathy, 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, lumbosacral region Active Problem 10/02/2020 [facility] Problem Active 2020-10-02 03:45:05 [facility] Calcaneal spur, left foot Calc aneal spur, left foot Active Problem 10/02/2020 [facility] Problem Active 2020-10-02 03:45:05 [facility] Pain in left ankle and joints of left foot Pain in left ankle and joints of left foot Active Problem 10/02/2020 [facility] Problem Active 2020-10-02 03:45:05 [facility] 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, lumbos acral region 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, lumbosacral region Active Problem 10/02/2020 [facility] Problem Active 2020-10-02 03:45:05 [facility] Sacroiliitis, not elsewhere classified Sacroiliitis, not elsewhere classified Active Problem 10/02/2020 [facility] Problem Active 2020-10-02 03:45:05 [facility] Tarsal tunnel syndrome, left lower limb Tarsal tunnel syndrome, left lower limb Active Problem 10/02/2020 [facility] Problem Active 2020-10-02 03:45:05 [facility] Neuralgia and neuritis, unspecified Neuralgia and neuritis, unspecified Active Problem 10/02/2020 [facility] Problem Active 2020-10-02 03:45:05 [facility] Tinea pedis Sissy a pedis Active Problem 10/02/2020 [facility] Problem Active 2020-10-02 03:45:05 [facility] Nail dystrophy Nail dystrophy Active Problem 10/02/2020 [facility] Problem Active 2020-10-02 03:45 :05 [facility] 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, lumbar region 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, lumbar region Active Problem 10/02/2020 [facility] Problem Active 2020-10-02 03:45:05 [facility] Other specified inflammatory spondylopathies, 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, lumbar region Active Problem 10/02/2020 [facility] Problem Active 2020-10-02 03:45 :05 [facility] Spondylosis without myelopathy or radiculopathy, lumba r region Spondylosis without myelopathy or radiculopathy, lumbar region Active Problem 10/02/2020 [facility] Problem Active 2020-10-02 03:45:05 Joe Waterman Other specified inflammatory spondylopathies, lumbosac ral region Other specified inflammatory spondylopathies, lumbosacral region Active Problem 10/02/2020 [facility] Problem Active 2020-10-02 03:45:05 Joe Waterman Pain in right ankle and joints of right foot Pain in right ankle and joints of right foot Active Problem 10/02/2020 [facility] Problem Active 2020-10-02 03:45:05 Carlos A casanova [facility] Vitamin B deficiency, unspecified Vitamin B deficiency, unspecified Active Problem 10/02/2020 [facility] Problem Active 2020-10-02 03:45:05 Joe Waterman Spondylosis without myelopathy or radiculopathy, cervi michell region Spondylosis without myelopathy or radiculopathy, cervical region Active Problem 10/02/2020 [facility] Problem Active 2020-10-02 03:45:05 Joe Waterman Other specified inflammatory spondylopathies, cervical region Other specified inflammatory spondylopathies, cervical region Active Problem 10/02/2020 [facility] Problem Active 2020-10-02 03:45:05 Joe Waterman Allergies, Adverse Reactions, Alerts Allergy Name Allergy Type Status Severity Reaction(s) Onset Date Inacti ve Date Treating Clinician Comments Source Meperidine Propensity to adverse reactions to drug Active Other (See Comments) 2019-08-03 00:00:00 Gerald Ortiz Cephalexin Propensity to adverse reactions to drug Active [facility] 2019-08-03 00:00:00 Gerald cotton Penicillin G Propensity to adverse reactions to drug Active [facility] 2019-08-03 00:00:00 Gerald cotton Keflex Keflex Active Info Not Available 2018-06-10 00:00:00 Joe Waterman Demerol Demerol Active Info Not Available 2018-06-10 00:00:00 Joe Waterman meperidine HCl DA Active [facility] 2018-02-14 00:00:00 [facility] Penicillins DA Active SV 2018-02-14 00:00:00 [facility] cephalexin DA Active SV 2018-02-14 00:00:00 [facility] amoxicillin DA Active SV 2018-02-14 00:00:00 [facility] ADHESIVES DA Active 2017-10-09 00:00:00 [facility] Penicillin Penicillin Active Info Not Available 2017-08-17 00:00:0 0 [facility] meperidine HCl Allergy to Substance Active SEIZURES 2013-09-04 00: 00:00 [facility] Cephalexin Monohydrate Allergy to Substance Active Moderate HIV ES 2013-09-04 00:00:00 [facility] Penicillin Allergy to Substance Active Moderate HIVES 2013-09-04 00:00:0 0 [facility] Family History Family Member Diagnosis Comments Start Date Stop Date Source Natural father Diabetes [facility] Natural father Heart attack Duarte Islam Natural father Heart disease Duarte Islam Maternal grandmother Diabetes [facility] Islam Natural mother Cancer [facility]odist Natural mother Diabetes [facility] Natural mother Heart disease Duarte Islam Paternal aunt Cancer [facility] gerardoist Unknown Family Member Family History 2016-09-20 02:45:02 2 02:45:02 Joe Waterman Social History Social Habit Start Date Stop Date Quantity Comments Source History of tobacco use Cigarette Smoker Beulah Islam History SDOH Alcohol Std Drinks Beulah Islam History SDOH Alcohol Binge Beulah Islam Sex Assigned At [facility] Islam Cigarettes smoked current (pack per day) - Reported 00:00:00 2019-12-16 00:00:00 Beulah Islam Cigarette pack-years 2019-12-16 00:00:00 2019-12-16 00:00:00 Beulah Islam Tobacco use and exposure 2019-12-16 00:00:00 2019-12-16 00:00:00 Gracie r used Beulah Islam Alcohol intake 2019-12-16 00:00:00 2019-12-16 00:00:00 Lifetime non-drinker (finding) Beulah Islam History SDOH Alcohol Frequency 2019-08-04 00:00:00 2019-08-04 00:00:0 0 1 Beulah Islam Doyousmoke? 2016-09-19 00:00:00 2016-09-19 00:00:00 Joe Waterman Smoking Status Start Date Stop Date Source Former smoker 2019-12-16 00:00:00 2019-12-16 00:00:00 Beulah Islam Medications Ordered Medication Name Filled Medication Name Start Date Stop Da te Current Medication? Ordering Clinician Indication Dosage Frequency Signature (SIG) Comments Components Source Lamotrigine 2020-10-02 03:45:05 Yes Abdelnaser Elkhalili 2 tablets [facility] Ketoconazole 2020-10-02 03:45:05 Yes Abdelnaser Elkhalil i 1 application to affected area [facility] Arron rmann Lac-Hydrin 2020-10-02 03:45:05 Yes Abdelnaser Elkhalili 1 application to affected area [facility] Dilantin 2020-10-02 03:45:05 Yes Abdelnaser [facility]halili 2 [facility] 2020-10-02 03:45:05 Yes Abdelnaslast Elkhali li not defined [facility] Omeprazole 2020-10-02 03:45:05 Yes Abdelnaser Elkhalili 1 capsule [facility] Lasix 2020-10-02 03:45:05 Yes Abdelnaser Elkhalili 1 tablet [facility] Duloxetine HCl 2020-10-02 03:45:05 Yes Abdelnaser Elkhalili 1 capsule [facility] Klonopin 2020-10-02 03:45:05 Yes Abdelnaser Elkhalili 1 tablet [facility] Iron (Ferrous Gluconate) 2020-10-02 03:45:05 Yes Abdelna ser Elkhalili not defined [facility] Orencia 2020-10-02 03:45:05 Yes Abdelnaser Elkhalili not defined [facility] Seroquel 2020-10-02 03:45:05 Yes Abdelnaser Elkhalili 2 tablet at bedtime [facility] Lamictal 2020-10-02 03:45:05 Yes Abdelnaser Elkhalili 2 tablets [facility] Ativan 2020-10-02 03:45:05 Yes Abdelnaser Elkhalili 1 tablet as needed [facility] Lexapro 2020-10-02 03:45:05 Yes Abdelnaser Elkhalili 1 tablets [facility] Vitamin D 2020-10-02 03:45:05 Yes Abdelnaser Elkhalili 1 capsule [facility] Potassium 2020-10-02 03:45:05 Yes Abdelnaser Elkhalili 1 tablet [facility] Lyrica 2020-10-02 03:45:05 Yes Abdelnaser Elkhalili 1 capsule [facility] Ibuprofen 2020-10-02 03:45:05 Yes Abdelnaslast Elkhalili 1 tablet [facility] traZODone (DESYREL) 50 MG tablet 2019-09-22 00:00:00 Yes TK 1 AND 1/2 TS 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 Gerald Ortiz clonAZEPAM (KlonoPIN) 0.5 MG tablet 2019-08-06 00:00:00 Yes TK 1 T PO Q 12 H PRA Gerald Ortiz DILANTIN EXTENDED 100 mg ER capsule 2019-08-02 00:00:00 Yes TK 2 CS PO TID Gerald Ortiz DULoxetine (CYMBALTA) 60 MG capsule 2019-07-29 00:00:00 Yes 60mg Q.5D Take 60 mg by mouth 2 (two) times a day. Gerald Ortiz lamoTRIgine (LaMICtal) 150 MG tablet 2019-07-26 00:00:00 Ye s TK 2 TS PO IN THE MORNING AND 3 TS IN THE EVENING Gerald Ortiz Potassium 2019-02-24 02:45:24 Yes Abdelnaser Elkhalili 1 tablet [facility] Clindamycin Hcl 150 Mg Capsule Clindamycin Hcl 150 Mg Capsul e 2018-12-07 00:00:00 Yes Rosario Hernandez [facility] [address] Moust[address]ha y [facility] Ferrous Sulfate 2018-01-19 03:45:02 Yes Abdelnaser Elkhalili 1 tablet [facility] Vitamin D 2018-01-19 03:45:02 Yes Abdelnaslast Elkhalili 1 capsule [facility] Vitamin B12 2018-01-19 03:45:02 Yes Abdelnaser Elkhalili 2 tablet [facility] Plaquenil 2018-01-19 03:45:02 Yes Abdelnaser Elkhalili 2 tablets with food or milk [facility] Sulfasalazine 2018-01-19 03:45:02 Yes Abdelnaser Elkhalili 2 tablets [facility] Vitamin B19-Bqacm Acid 2018-01-19 03:45:02 Yes Abdelnase r Elkhalili as directed [facility] Lasix 2017-10-30 03:50:56 Yes Abdelnaser Elkhalili 1 tablet [facility] Orencia 2017-09-07 00:00:00 Yes Abdelnaser Elkhalili as directed [facility] Lamotrigine 2017-08-13 02:45:01 Yes Abdelnaser Elkhalili 2 tablets [facility] Duloxetine HCl 2017-08-13 02:45:01 Yes Abdelnaser Elkhalili 1 capsule [facility] Seroquel 2017-08-13 02:45:01 Yes Abdelnaser Elkhalili 2 tablet at bedtime [facility] Dilantin 2017-08-13 02:45:01 Yes Abdelnaser Elkhalili 2 capsule [facility] Ativan 2017-08-13 02:45:01 Yes Abdelnaser Elkhalili 1 tablet as needed [facility] Vitamin B12 2017-08-13 02:45:01 Yes Abdelnaser Elkhalili 2 tablet [facility] Lexapro 2017-08-13 02:45:01 Yes Abdelnaser Elkhalili 1 tablets [facility] Lamictal 2017-08-13 02:45:01 Yes Abdelnaser Elkhalili 2 tablets [facility] Plaquenil 2017-08-13 02:45:01 Yes Abdelnaser Elkhalili 2 tablets with food or milk [facility] Sulfasalazine 2017-08-13 02:45:01 Yes Abdelnaser Elkhalili 2 tablets [facility] Omeprazole 2017-08-13 02:45:01 Yes Abdelnaser Elkhalili 1 capsule [facility] Lasix 2017-08-13 02:45:01 Yes Abdelnaser Elkhalili 1 tablet [facility] Orencia 2017-08-13 02:45:01 Yes Abdelnaser Elkhalili as directed [facility] Vitamin D 2017-08-13 02:45:01 Yes Abdelnaser Elkhalili 1 capsule [facility] Ferrous Sulfate 2017-08-13 02:45:01 Yes Abdelnaser Elkhalili 1 tablet [facility] Lac-Hydrin 2017-05-08 00:00:00 Yes Vick Taylorecht 1 application to affected area [facility] Vitamin U55-Fhike Acid 2017-05-08 00:00:00 Yes Vick De Leon ht as directed [facility] Ketoconazole 2017-05-08 00:00:00 Yes Vick Taylorecht 1 application to affected area [facility] Metanx 2017-03-26 00:00:00 Yes Deneen Penn 1 tablet [facility] Aripiprazole (Abilify) 30 Mg Tablet Aripiprazole (Abilify) 30 Mg Tabl et Yes 1 Rt Daily [facility] Ciprofloxacin Hcl (Cipro) 500 Mg Tablet Ciprofloxacin Hcl (C ipro) 500 Mg Tablet Yes 1 Twice A Day [facility] Duloxetine Hcl (Cymbalta) 60 Mg Capsule. Duloxetine Hcl (Cymbalta) 60 Mg Capsule. Yes 1 Rt Daily [facility] Esomeprazole Magnesium (Nexium) 40 Mg Capsule. Esbenita prazole Magnesium (Nexium) 40 Mg Capsule. Yes 1 Rt Daily [facility] Gabapentin (Neurontin) 300 Mg Capsule Gabapentin (Neurontin) 300 Mg Capsule Yes 1 Twice A Day [facility] Metronidazole (Flagyl) 500 Mg Tablet Metronidazole (Flagyl) 500 Mg Tablet Yes 1 Three Times A Day [facility] Phenytoin Sodium Extended (Dilantin) 100 Mg Capsule Ph enytoin Sodium Extended (Dilantin) 100 Mg Capsule Yes 6 Rt Daily [facility] Trazodone Hcl 100 Mg Tablet Trazodone Hcl 100 Mg Tablet Yes 1 Rt Daily [facility] Immunizations Ordered Immunization Name Filled Immunization Name Date Status Comments Source Pneumococcal Conjugate 13-Valent 2016-09-10 00:00:00 Compl eted Gerald Ortiz Vital Signs Vital Name Observation Time Observation Value Comments Source Body height 2019-12-16 11:27:00 142.2 cm Gerald Ortiz Body weight 2019-12-16 11:27:00 77.111 kg Gerald Ortiz BMI 2019-12-16 11:27:00 38.11 kg/m2 Gerald Ortiz Systolic blood pressure 2019-10-21 13:25:00 99 mm[Hg] Gerald Ortiz Diastolic blood pressure 2019-10-21 13:25:00 64 mm[Hg] Gerald Mannist Heart rate 2019-10-21 13:25:00 76 /min Gerald Ortiz Weight 2018-06-10 16:00:00 [facility] Height 2018-06-10 16:00:00 [facility] Respitory Rate 2018-06-10 16:00:00 [facility] Diastolic (mm Hg) 2018-06-10 16:00:00 [facility] Systolic (mm Hg) 2018-06-10 16:00:00 Carlos A [facility] Temperature Oral (F) 2018-06-10 16:00:00 98 F [facility] Heart Rate 2018-06-10 16:00:00 [facility] Weight 2018-05-13 16:00:00 [facility] Respitory Rate 2018-05-13 16:00:00 [facility] Diastolic (mm Hg) 2018-05-13 16:00:00 [facility] Systolic (mm Hg) 2018-05-13 16:00:00 Carlos A [facility] Temperature Oral (F) 2018-05-13 16:00:00 98 F [facility] Heart Rate 2018-05-13 16:00:00 [facility] Weight 2017-09-07 15:00:00 [facility] Systolic (mm Hg) 2017-09-07 15:00:00 Carlos A rial [facility] Respitory Rate 2017-09-07 15:00:00 [facility] Heart Rate 2017-09-07 15:00:00 [facility] Temperature Oral (F) 2017-09-07 15:00:00 97.8 F [facility] Diastolic (mm Hg) 2017-09-07 15:00:00 [facility] Weight 2017-08-17 16:00:00 [facility] Systolic (mm Hg) 2017-08-17 16:00:00 Carlos A rial [facility] Respitory Rate 2017-08-17 16:00:00 [facility] Heart Rate 2017-08-17 16:00:00 [facility] Temperature Oral (F) 2017-08-17 16:00:00 97.5 F [facility] Diastolic (mm Hg) 2017-08-17 16:00:00 [facility] Weight 2017-08-07 16:30:00 [facility] Systolic (mm Hg) 2017-08-07 16:30:00 Carlos A [facility] Respitory Rate 2017-08-07 16:30:00 [facility] Heart Rate 2017-08-07 16:30:00 [facility] Temperature Oral (F) 2017-08-07 16:30:00 97.1 F [facility] Diastolic (mm Hg) 2017-08-07 16:30:00 [facility] Weight 2017-06-10 16:00:00 [facility] Systolic (mm Hg) 2017-06-10 16:00:00 Carlos A rial [facility] Respitory Rate 2017-06-10 16:00:00 [facility] Heart Rate 2017-06-10 16:00:00 [facility] Temperature Oral (F) 2017-06-10 16:00:00 98 F [facility] Diastolic (mm Hg) 2017-06-10 16:00:00 [facility] Weight 2017-05-18 15:00:00 [facility] Systolic (mm Hg) 2017-05-18 15:00:00 Carlos A rial [facility] Respitory Rate 2017-05-18 15:00:00 [facility] Heart Rate 2017-05-18 15:00:00 [facility] Temperature Oral (F) 2017-05-18 15:00:00 97.3 F [facility] Diastolic (mm Hg) 2017-05-18 15:00:00 [facility] Weight 2017-05-11 15:00:00 [facility] Systolic (mm Hg) 2017-05-11 15:00:00 Carlosa rial [facility] Respitory Rate 2017-05-11 15:00:00 [facility] Heart Rate 2017-05-11 15:00:00 [facility] Temperature Oral (F) 2017-05-11 15:00:00 98 F [facility] Diastolic (mm Hg) 2017-05-11 15:00:00 [facility] Weight 2017-04-10 15:00:00 [facility] Systolic (mm Hg) 2017-04-10 15:00:00 Carlos A rial [facility] Respitory Rate 2017-04-10 15:00:00 [facility] Heart Rate 2017-04-10 15:00:00 [facility] Temperature Oral (F) 2017-04-10 15:00:00 97.7 F [facility] Diastolic (mm Hg) 2017-04-10 15:00:00 [facility] Weight 2017-03-23 15:00:00 [facility] Systolic (mm Hg) 2017-03-23 15:00:00 Carlos A [facility]istob[facility] Respitory Rate 2017-03-23 15:00:00 [facility] Heart Rate 2017-03-23 15:00:00 [facility] Temperature Oral (F) 2017-03-23 15:00:00 97.5 F [facility] Diastolic (mm Hg) 2017-03-23 15:00:00 [facility] Procedures Procedure Date / Time Performed Performing Clinician Sour e [place] ARTHROCENTESIS ASPIR&/INJ MAJOR JT/BURSA W/O 2019-12-31 0 13:30:00 Blanco Simon [place] ARTHROCENTESIS ASPIR&/INJ MAJOR JT/BURSA W/O 2019-11-30 7 11:00:00 Blanco Simon MRI KNEE WO CONTRAST RIGHT 2019-12-16 08:15:00 Blanco Simon XR KNEE 4+ VW RIGHT 2019-12-05 11:40:12 Blanco Simon [place] ARTHROCENTESIS ASPIR&/INJ MAJOR JT/BURSA W/O 6 11:20:00 Blanco Simon XR SHOULDER 2+ VW RIGHT 2019-10-21 13:22:53 Blanco Simon Plan of Care Planned Activity Planned Date Details Comments Source Future Scheduled Test 2020-06-30 00:00:00 INFLUENZA VACCINE [code = INFLUENZA VACCINE] Gerald Ortiz Future Scheduled Test 1994 00:00:00 Screening for sandra gnant neoplasm of cervix (procedure) [code = 990652027] Gerald cotton Encounters Start Date/Time End Date/Time Encounter Type Admission Type Att[facility] Care Department Encounter ID Source 2020-08-13 07:07:00 2020-08-13 07:07:00 Outpatient MHSE MHSE [id number] [facility] 2019-09-30 12:27:00 2019-09-29 01:16:00 Inpatient E MHSE MED [id number] [facility] 2019-04-19 22:35:00 2019-04-19 22:35:00 Emergency E MHSE SE [id number] [facility] 2018-12-07 09:38:00 2018-12-07 11:06:00 Departed Emergency Room 1 ROSARIO HERNANDEZ [facility] [id number] [facility] 2018-11-30 11:07:00 2018-11-30 13:10:00 Departed Emergency Room [facility] [id number] [facility] 2018-06-10 10:00:00 2018-06-10 10:00:00 Outpatient [id number]-05-13 11:00:00 2018-05-13 11:00:00 [facility]patient [facility] [id number] e [facility] 2018-04-12 08:06:00 2018-04-12 08:06:00 Outpatient DO NOT USE - CLS - Jeff A DO NOT USE - CLS - Jeff A [id number] [facility] 2018-04-09 09:34:00 2018-04-09 09:34:00 Outpatient DO NOT USE - CLS - Jeff A DO NOT USE - CLS - Jeff A [id number] [facility] 2018-04-09 09:21:00 2018-04-09 09:21:00 [facility]patient [facility] [id number] [facility] 2018-04-09 09:16:00 2018-04-09 09:16:00 Outpatient DO NOT USE - CLS - Jeff A DO NOT USE - CLS - Jeff A [id number] [facility] 2018-02-22 10:04:00 2018-02-22 10:04:00 Outpatient [facility] [id number] eCl inicalWorks 2018-01-18 10:06:00 2018-01-18 10:06:00 [facility]patient [facility] [id number] eCl inicalWorks 2017-12-16 16:08:00 2017-12-16 16:08:00 Outpatient [facility] [id number] [facility] 2017-09-07 10:00:00 2017-09-07 10:00:00 Outpatient DO NOT USE - CLS - Jeff A DO NOT USE - CLS - Jeff A [id number] [facility] 2017-08-29 10:15:00 2017-08-29 10:15:00 Outpatient DO NOT USE - CLS - Jeff A DO NOT USE - CLS - Jeff A [id number] [facility] 2017-08-29 10:15:00 2017-08-29 10:15:00 Outpatient DO NOT USE - CLS - Jeff A DO NOT USE - CLS - Jeff A [id number] [facility] 2017-08-17 10:00:00 2017-08-17 10:00:00 Outpatient DO NOT USE - CLS - Jeff A DO NOT USE - CLS - Jeff A [id number] [facility] 2017-08-07 10:30:00 2017-08-07 10:30:00 Outpatient DO NOT USE - CLS - Jeff A DO NOT USE - CLS - Jeff A [id number] [facility] 2017-06-10 10:00:00 2017-06-10 10:00:00 Outpatient DO NOT USE - CLS - Jeff A DO NOT USE - CLS - Jeff A [id number] [facility] 2017-05-18 10:00:00 2017-05-18 10:00:00 Outpatient CLS - Jeff A CLS - Jeff A [id number] [facility] 2017-05-11 10:00:00 2017-05-11 10:00:00 Outpatient CLS - Jeff A CLS - Jeff A [id number] [facility] 2017-04-10 10:00:00 2017-04-10 10:00:00 Outpatient CLS - Jeff A CLS - Jeff A [id number] [facility] 2017-03-26 09:36:00 2017-03-26 09:36:00 Outpatient CLS - Jeff A CLS - Jeff A [id number] [facility] 2017-03-23 10:00:00 2017-03-23 10:00:00 Outpatient CLS - Jeff A CLS - Jeff A [id number] [facility] 2016-09-18 12:42:00 2016-09-18 12:42:00 Outpatient [facility] [id number] [facility] Test Description Test Time Test Comments Results Result Comments Source HIP 2VW LT W/PELVIS - HOPD 2020-10-12 15:43:00 [facility] : 1975 Sex: F [place] [address] Patient Name: SAFIA CHAIREZ MR #: [id number] : 1975 Age/Sex: 44/F Req #: [id number] [facility] Physician: Ordered by: JUAN WOODS Report #: [id number] Location: [facility] Room/Bed: Procedure: [id number] HOPD/HIP 2VW LT W/PELVIS - HOPD Exam Date: 10/12/20 Exam Time: 1528 REPORT STATUS: Signed EXAM: FEMUR 2VIEW LT - HOPD, HIP 2VW LT W/PELVIS - HOPD DATE: 10/12/2020 3:28 PM INDICATION: Fall COMPARISON: None FINDINGS: There is no evidence for acute fracture or dislocation within the pelvis, left hip, or left femur. The femoral heads maintain a normal relationship with the acetabula. The surrounding soft tissues are unremarkable without evidence for radiopaque foreign body. Phleboliths are noted within the pelvis. IMPRESSION: No acute radiographic abnormality identified within the pelvis, left hip, or left femur. Signed by: Dr. Cory Muse MD on 10/12/2020 3:45 PM Di ctated By: CORY MUSE MD 44 Transcribed By: KELLIE on 10/12/201544 COPY TO: JUAN WOODS FEMUR 2VIEW LT - HOPD 2020-10-12 15:43:00 [facility] 1975 Sex: F [place] [address] Patient Name: SAFIA CHAIREZ MR #: [id number] : 1975 Age/Sex: 44/F Req #: [id number] [facility] Physician: Ordered by: JUAN WOODS Report #: [id number] Location: [facility] Room/Bed: Procedure: [id number] HOPD/FEMUR 2VIEW LT - HOPD Exam Date: 10/12/20 Exam Time: 1528 REPORT STATUS: Signed EXAM: FEMUR 2VIEW LT - HOPD, HIP 2VW LT W/PELVIS - HOPD DATE: 10/12/2020 3:28 PM INDICATION: Fall COMPARISON: None FINDINGS: There is no evidence for acute fracture or dislocation within the pelvis, left hip, or left femur. The femoral heads maintain a normal relationship with the acetabula. The surrounding soft tissues are unremarkable without evidence for radiopaque foreign body. Phleboliths are noted within the pelvis. IMPRESSION: No acute radiographic abnormality identified within the pelvis, left hip, or left femur. Signed by: Dr. Cory Muse MD on 10/12/2020 3:45 PM Dictate d By: CORY MUSE MD 44 Transcribed By: KELLIE on 10/12/201544 COPY TO: JUAN WOODS Large Joint Arthrocentesis: knee, R knee 2020-01-09 13:30:00 Blanco Simon MD 01/09/2020 1:54 PMLarge Joint Arthrocentesis: knee, R kneeConsent given by: patientTimeout: Immediately prior to procedure a time out was called to verify the correct patient, procedure, equipment, technical support internship and site/side marked as required Supporting DocumentationIndications: pain Procedure DetailsPreparation: Patient was prepped and draped in the usual sterile fashionUltrasound guided: no Platelet Rich Plasma Used: no PRP Used Location: knee - R knee Right side:Needle size: 22 GApproach: anterolateralRight knee medications administered: 2 mL sodium hyaluronate (viscosup) 30 mg/2 mLPatient tolerance: patient tolerated the procedure well with no immediate complications Gerald Ortiz Large Joint Arthrocentesis: knee, R knee 2019-12-16 11:00:00 Blanco Simon MD 12/18/2019 8:31 PMLarge Joint Arthrocentesis: knee, R kneeConsent given by: patientTimeout: Immediately prior to procedure a time out was called to verify the correct patient, procedure, equipment, technical support internship and site/side marked as required Supporting DocumentationIndications: pain Procedure DetailsPreparation: Patient was prepped and draped in the usual sterile fashionUltrasound guided: no Platelet Rich Plasma Used: no PRP Used Location: knee - R knee Right side:Needle size: 22 GApproach: anterolateralRight knee medications administered: 4 mL hyaluronate sodium, stabilized 88 mg/4 mLPatient tolerance: patient tolerated the procedure well with no immediate complications Duarte Islam MRI Knee Right Wo Contrast 2019-12-16 08:55:00 Addendum by Hari Mejia MD on 12/16/2019 9:00 AM ADDENDUM #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 Interface, Radiology Results 12/16/2019 8:58 AM CSTEXAMINATION: MRI KNEE WO CONTRAST RIGHTCLINICAL HISTORY: M94.261 Chondromalacia right knee, M22.2X1 Patellofemoral disorders right knee, evaluate meniscusTECHNIQUE: Multiplanar multisequence MR imaging of the knee was performed without contrast.COMPARISON: 12/05/2019FINDINGS:Cruciate ligaments: Intact.Collateral ligaments: Faint fluid signal abnormality along the medial collateral ligament may be sequela of prior injury or reflect low-grade sprain. Fibular collateral ligament, biceps femoris and IT band are intact.Medial Menisc us: Medial meniscus intact.Medial Compartment Cartilage: Partial-thickness cartilage loss with flap formation (series 6 image 13) involving the medial femoral condyle.Lateral Meniscus: Lateral meniscus intact.Lateral Compartment Cartilage: Mildly thinned with areas of surface fissuring involving the far posterior lateral femoral condylePatellofemoral Compartment:Areas of full- thickness cartilage loss involving the medial patellar facet, median ridge with subchondral cystic change and areas of high-grade partial-thickness cartilage loss involving the lateral patellar facet, and trochlea. Extensor mechanism: Intact. Mild edema in the suprapatellar fat pad.Effusion: Physiologic joint fluidBone marrow: Subchondral cystic changes of the patella. No fracture or marrow replacing lesion.Soft tissues: Tiny Aldridge's cyst. Nonspecific prepatellar/infrapatellar soft tissue swelling.IMPRESSION:1.Moderate to severe patellofemoral compartment degenerative changes and associated edema within the suprapatellar fat pad.2.Mild medial and lateral compartment chondromalacia.3.Grade 1 MCL sprain versus sequela of prior injury.4.Tiny Aldridge's cyst.[id number] Gerald Ortiz Large Joint Arthrocentesis: knee, R knee 2019-12-05 11:20:00 Blanco Simon MD 12/06/2019 8:41 PMLarge Joint Arthrocentesis: knee, R kneeConsent given by: patientTimeout: Immediately prior to procedure a time out was called to verify the correct patient, procedure, equipment, technical support internship and site/side marked as required Supporting DocumentationIndications: pain Procedure DetailsPreparation: Patient was prepped and draped in the usual sterile fashionUltrasound guided: no Platelet Rich Plasma Used: no PRP Used Location: knee - R knee Right side:Needle size: 22 GApproach: anterolateralRight knee medications administered: 2 mL lidocaine 20 mg/mL (2 %); 6 mg betamethasone acetate & sodium phosphate 6 mg/mLPatient tolerance: patient tolerated the procedure well with no immediate complications Hous abhilash Ortiz - CT ABD PELVIS W/CONT 2019-05-13 17:14:00 Gabriel e: SAFIA CHAIREZ [facility] : 1975 Age/S: 43 / F [address] [place] [address] Unit #: [id number] Loc: [place] [address] Phys: Jignesh Stewart MD Acct: [id number] Dis Date: Status: REG CLI PHONE #: [phone] Exam Date: 05/13/2019 1433 FAX #: [phone] Reason: R11.0 NAUSEA, R10.84 GEN. ABD PAIN, R11.10 VOMI EXAMS: CPT CODE: [id number] CT ABD PELVIS W/CONT 00012 PROCEDURE: CT ABDOMEN AND PELVIS WITH CONTRAST INDICATION: R11.0 NAUSEA, R10.84 GEN. ABD PAIN, R11.10 VOMITING 43-year-old female with recent history of surgery for small bowel obstruction. COMPARISON: 04/21/2019, 10/29/2017 TECHNIQUE: Helical imaging was performed diaphragm through the symphysis with multiplanar reconstructions. IV CONTRAST: 100 mL Isovue-300. GI CONTRAST: [address] imaging performed at this location utilizes radiation dose optimization techniques which include one or more of the following: -Automated exposure control -Adjustment of the mA and/or kV according to patient size -Use of iterative reconstruction technique CT Radiation Dose DLP 436.10 mGy-cm FINDINGS: LOWER CHEST: Mild groundglass attenuation in the basilar lower lobes, heterogeneous distribution. Indistinct opacities in the medial segment right middle lobe less than 1 cm suggesting focal airspace disease. Diminutive nodular opacities in the lingula suggesting additional clustered infiltrate. No consolidation. No pleural abnormality. LIVER: Normal. GALLBLADDER: Surgically absent. SPLEEN: Normal. PANCREAS: Normal. ADRENALS: Normal. KIDNEYS: Normal. BOWEL: Postoperative changes of gastric bypass. Unremarkable gastrojejunostomy. GI contrast progresses i nto normal caliber small bowel without obstruction. Interval surgery at the level of Maria Luisa-en-Y. There is mild bowel wall thickening at the level of anastomosis. Resolution of described low-attenuation mass in the mesentery. The remainder of the small bowel is unremarkable. PAGE 1 Signed Report (CONTINUED) Name: SAFIA CHAIREZ [facility] : 1975 Age/S: 43 / F [address] [place], [place] [address]vd Unit #: [id number] Loc: [place] [address] Phys: Jignesh Stewart MD Acct: [id number] Dis Date: Status: REG CLI PHONE #: [phone] Exam Date: 05/13/2019 1433 FAX #: [phone] Reason: R11.0 NAUSEA, R10.84 GEN. ABD PAIN, R11.10 VOMI EXAMS: CPT CODE: [id number] CT ABD PELVIS W/CONT 37252 <Continued> Scattered fecal material within otherwise unremarkable colon. APPENDIX: Normal. PERITONEUM: Trace free fluid in the pelvis, within physiologic limits. No focal fluid collection. No free air. RETROPERITONEUM: No adenopathy. The aorta is normal. PELVIS: Small bilateral ovarian cyst with nearly imperceptible bautista, largest left ovary 2.5 cm diameter, fluttering from prior exam and compatible with physiologic/follicular cysts. The urinary bladder is unremarkable. MUSCULOSKELETAL: The skeleton is intact. IMPRESSION: 1. Interval surgical removal of mesenteric mass compatible with fat necrosis. There is mild wall thickening of the small bowel at the level of Maria Luisa-en-Y, nonspecific and possibly reflecting postoperative edema. 2. There is no evidence for bowel obstruction, perforation, abscess or other acute complication. 3. Patent gastrojejunostomy. 4. Trace free fluid in the pelvis, within physiologic limits. 5. Small ovarian cysts fluctuating in size and compatible with physiologic/follicular cysts. As an incidental finding, no further workup is required. 6. Indistinct opacities in the medial right middle lobe and small clustered nodular opacities in the lingula. These may reflect inflammatory/infectious etiology. Bronchiolitis in the differential. 7. Ground glass attenuation opacities in the lung bases are nonspecific, possibly reflecting focal air trapping related to small airway disease. A verbal report was called to Jignesh Stewart MD on 05/13/2019 5:10 PM. SL: GERALDO at 0614 Reported and signed by: Juan Torres M.D. PAGE 2 Signed Report (CONTINUED) Name: SAFIA CHAIREZ [facility] : 1975 Age/S: 43 / F [address] [place] [address] Bl Unit #: [id number] Loc: [place] [address] Phys: Jignesh Stewart MD Acct: [id number] Dis Date: Status: REG CLI PHONE #: [phone] Exam Date: 05/13/2019 1433 FAX #: [phone] Reason: R11.0 NAUSEA, R10.84 GEN. ABD PAIN, R11.10 VOMI EXAMS: CPT CODE: [id number] CT ABD PELVIS W/CONT 88515 <Continued> CC: Jignesh Stewart MD Technologist:Thomas Aguero, RT(R) CTDI: DLP: Trnscb Date/Time: 05/13/2019 (376) tMULUGETA Orig Print D/T: S: 05/13/2019 (324) PAGE 3 Signed Report SURGICAL SPECIMENS 2019-04-29 07:14:00 RUN DATE: 04/29/19 [facility] *LIVE* PAGE 1 RUN TIME: 714 Specimen Inquiry RUN USER: INTERFACE PATIENT: SAFIA CHAIREZ LOC: [place] U #: [id number] AGE/SX: 43/F ROOM: RE04/22/19[facility] DR: Jignesh Stewart MD : [birth year] BED: DIS: STATUS: [facility] TLOC: SPEC #: [id number] RECD: 04/26/19 STATUS: EBENEZER GZUMAN #: [id number] SALO: 04/26/[address] [facility] [address]: Jignesh Stewart MD ENTERED: 04/29/19 SP TYPE: SURG SPEC OTHR DR: Jose Covington MD ORDERED: GM LEVEL 4 CODES: [id number] - SOFT TISSUES, N COPIES TO: Jignesh Stewart MD [address] [place] [address] [address] [place] [address] Jose Covington MD [address] [place] [address] PROCEDURES: GM LEVEL 4 (Incomplete) TISSUES: 1. SOFT TISSUES, NOS - Soft tissue, mesenteric region, excision FINAL DIAGNOSIS Soft tissue, mesenteric region, excision: Fat necrosis, fibrosis, mixed inflammation, no definite mass lesion is identified. GROSS AND MICROSCOPIC GROSS EXAMINATION: Received the specimen as designated above and it consists of 2 segments of hemorrhagic tissue measuring 7.5 x 6.6 x 2.9 cm. Cylinder Block Mechanic sections are submitted as (A)-(G). MICROSCOPIC EXAMINATION: Sections of the mesenteric soft tissue reveal portions of adipose tissue changes Necrosis, fibrosis, areas of hemorrhage an d mild mixed inflammation. There is a single reactive lymph node in the soft tissue. No definite malignancy is identified. POST-OP DIAGNOSIS Abdominal pain CONTINUED ON NEXT PAGE RUN DATE: 04/29/19 [place] *LIVE* PAGE 2 RUN TIME: 714 Specimen Inquiry RUN USER: INTERFACE -------- ----SPEC #: [id number] PATIENT: SAFIA CHAIREZ #[id number] (Continued) PRE- OP DIAGNOSIS Abdominal pain REVIEWED BY: JOY Signed SIGNATURE ON Richard Fletcher Bridgett SALAZAR 04/29/19 0714 END OF REPORT BASIC METABOLIC PANEL 2019-04-22 08:31:00 Test Item SODIUM (test code = NA) 138 mEq/L 134-147 N POTASSIUM (test code = K) 3.9 mEq/L 3.4-5.0 N CHLORIDE (test code = CL) 104 mEq/L 100-108 N CARBON DIOXIDE (test code = CO2) 28 mEq/L 21-33 N ANION GAP (test code = GAP) 10 0-20 N GLUCOSE (test code = GLU) 77 mg/dL 70-110 N BLOOD UREA NITROGEN (test code = BUN) 7 mg/dL 7-18 N GLOMERULAR FILTRATION RATE (test code = GFR) 108.1 95-105 H Units of measure = ml/min/1.73 m2 CREATININE (test code = CREAT) 0.6 mg/dL 0.6-1.3 N CALCIUM (test code = CA) 8.5 mg/dL 8.0-10.5 N HCG SERUM [id number] 08:31:00* Test Item Value Reference Range Interpretation Comments HCG SERUM QUAL (test code = HCGQL) SERUM NEGATIVE NEGATIVE BASIC METABOLIC [id number] 08:24:00* Test Item Value Reference Range Interpretation Comments SODIUM (test code = NA) mEq/L 134-147 POTASSIUM (test code = K) mEq/L 3.4-5.0 CHLORIDE (test code = CL) mEq/L 100-108 CARBON DIOXIDE (test code = CO2) mEq/L 21-33 ANION GAP (test code = GAP) 0-20 GLUCOSE (test code = GLU) mg/dL 70-110 BLOOD UREA NITROGEN (test code = BUN) mg/dL 7-18 GLOMERULAR FILTRATION RATE (test code = GFR) 95-105 CREATININE (test code = CREAT) mg/dL 0.6-1.3 CALCIUM (test code = CA) mg/dL 8.0-10.5 HCG SERUM [id number] 08:24:00* Test Item Value Reference Range Interpretation Comments HCG SERUM QUAL (test code = HCGQL) SERUM NEGATIVE NEGATIVE CBC W/AUTO [id number] 08:14:00* Test Item Value Reference Range Interpretation Comments WHITE BLOOD CELL (test code = WBC) 7.72 x10 3/uL 4.5-11.0 N RED BLOOD CELL (test code = RBC) 3.91 x10 6/uL 3.54-5.02 N HEMOGLOBIN (test code = HGB) 12.0 g/dL 11.0-15.0 N HEMATOCRIT (test code = HCT) 36.2 % 33.0-45.0 N MEAN CELL VOLUME (test code = MCV) 92.6 fL 81.0-99.0 N MEAN CELL HGB (test code = MCH) 30.7 pg 27.0-33.0 N MEAN CELL HGB CONCETRATION (test code = MCHC) 33.1 g/dL 33.0-37. 0 N RED CELL DISTRIBUTION WIDTH CV (test code = RDW) 13.2 % 11.5- 14.5 N RED CELL DISTRIBUTION WIDTH SD (test code = RDW-SD) 44.6 fL 37 .0-54.0 N PLATELET COUNT (test code = PLT) 391 x10 3/uL 150-400 N MEAN PLATELET VOLUME (test code = MPV) 10.2 fL 7.0-9.0 H NEUTROPHIL % (test code = NT%) 59.0 % 56.0-77.0 N IMMATURE GRANULOCYTE % (test code = IG%) 0.5 % 0.0-2.0 N LYMPHOCYTE % (test code = LY%) 26.8 % 14.0-32.0 N MONOCYTE % (test code = MO%) 10.8 % 4.8-9.0 H EOSINOPHIL % (test code = EO%) 2.5 % 0.3-3.7 N BASOPHIL % (test code = BA%) 0.4 % 0.0-2.0 N NUCLEATED RBC % (test code = NRBC%) 0.0 % 0-0 N NEUTROPHIL # (test code = NT#) 4.56 x10 3/uL 2.0-7.6 N IMMATURE GRANULOCYTE # (test code = IG#) 0.04 x10 3/uL 0.00-0.03 H LYMPHOCYTE # (test code = LY#) 2.07 x10 3/uL 1.0-3.8 N MONOCYTE # (test code = MO#) 0.83 x10 3/uL 0.1-0.8 H EOSINOPHIL # (test code = EO#) 0.19 x10 3/uL 0.0-0.2 N BASOPHIL # (test code = BA#) 0.03 x10 3/uL 0.0-0.2 N NUCLEATED RBC # (test code = NRBC#) 0.00 x10 3/uL 0.0-0.1 N MANUAL DIFF REQUIRED (test code = MDIFF) NO - CT ABD PELVIS [id number] 16:43:00 Name: SAFIA CHAIREZ [facility] : 1975 Age/S: 43 / F [address] [place] [address] Unit #: [id number] Loc: [place] [address] Phys: Jignesh Stewart MD Acct: [id number] Dis Date: Status: REG CLI PHONE #: [phone] Exam Date: 04/21/2019 115 FAX #: [phone] Reason: R10.84 , GENERALIZED ABDOMINAL PAIN. EXAMS: CPT CODE: [id number] CT ABD PELVIS W/CONT 39240 PROCEDURE: CT ABDOMEN AND PELVIS WITH CONTRAST INDICATION: R10.84 , GENERALIZED ABDOMINAL PAIN. 43-year-old female post gastric bypass surgery. Left upper quadrant pain for one week. COMPARISON: 10/29/2017 TECHNIQUE: Helical imaging was performed diaphragm through the symphysis with multiplanar reconstructions. IV CONTRAST: 100 mL Isovue-300. GI CONTRAST: [address] imaging performed at this location utilizes radiation dose optimization techniques which include one or more of the following: -Automated exposure control -Adjustment of the mA and/or kV according to patient size -Use of iterative reconstruction technique CT Radiation Dose DLP 284.10 mGy-cm FINDINGS: LOWER CHEST: The lung bases are clear. LIVER: Normal. GALLBLADDER: Cholecystectomy SPLEEN: Normal. PANCREAS: Normal. ADRENALS: Normal. KIDNEYS: Normal. BOWEL: Postoperative changes of gastric bypass redemonstrated. The excluded unopacified and contracted stomach and duodenum are unremarkable. Limited opacification of the gastrojejunostomy. Contrast progresses into proximal jejunum without obstruction or extravasation. No regional inflammatory changes at the level of the gastrojejunostomy. There is a several centimeter segment of bowel wall thickening involving jejunum at the level of Maria Luisa-en-Y anastomosis. There is stranding of adjacent mesenteric fat. Stranding surrounds fat attenuation structure within the mesenteric fat which is irregular shape measuring approximately 9 x 3 x 4.3 cm. No extraluminal fluid or gas. The visualized mesenteric vessels are patent. Disorganized mesentery related to prior surgery without PAGE 1 S igned Report (CONTINUED) Name: SAFIA CHAIREZ [facility] : 1975 Age/S: 43 / F [address] [place] [address] Blvd Unit #: [id number] Loc: [place] [address] Phys: Jignesh Stewart MD Acct: [id number] Dis Date: Status: REG CLI PHONE #: [phone] Exam Date: 04/21/2019 1156 FAX #: [phone] Reason: R10.84 , GENERALIZED ABDOMINAL PAIN. EXAMS: CPT CODE: [id number] CT ABD PELVIS W/CONT 65635 <Continued> definitive evidence for internal hernia. The unopacified colon is unremarkable. APPENDIX: Normal. PERITONEUM: Trace free fluid in the pelvis. No free air. RETROPERITONEUM: No adenopathy. The aorta is normal. PELVIS: No pelvic mass. The urinary bladder is normal. MUSCULOSKELETAL: The skeleton is intact. IMPRESSION: 1. Patent gastrojejunostomy without obstruction or extravasation. 2. Edematous jejunum at the level of Maria Luisa-en-Y with stranding of adjacent mesenteric fat, etiology undetermined. 3. Irregular shaped fat attenuation lesion within the mesentery new from prior examination. Phlegmon favored over mesenteric infarction given distribution. Internal hernia difficult to exclude in the postoperative setting of Maria Luisa-en-Y. There is no evidence for bowel obstruction or perforation. A verbal report was called to Jignesh Stewart MD on 04/21/2019 4:34 PM. SL: [id number] at 1643 Reported and signed by: Juan Torres M.D. CC: Jignesh Stewart MD Technologist:Hector Marroquin RT(R)(CT) CTDI: DLP: Trnscb Date/Time: 04/21/2019 (997) [email or web address] Orig Print D/T: S: 04/21/2019 (6999) PAGE 2 Signed Report BASIC METABOLIC PANEL 2019-03-09 15:35:00* Test Item Value Reference Range Interpretation Comments SODIUM (test code = NA) 137 mEq/L 134-147 N POTASSIUM (test code = K) 3.6 mEq/L 3.4-5.0 N CHLORIDE (test code = CL) 104 mEq/L 100-108 N CARBON DIOXIDE (test code = CO2) 29 mEq/L 21-33 N ANION GAP (test code = GAP) 8 0-20 N GLUCOSE (test code = GLU) 76 mg/dL 70-110 N BLOOD UREA NITROGEN (test code = BUN) 6 mg/dL 7-18 L GLOMERULAR FILTRATION RATE (test code = GFR) 90.5 95-105 L Units of measure = ml/min/1.73 m2 CREATININE (test code = CREAT) 0.7 mg/dL 0.6-1.3 N CALCIUM (test code = CA) 8.2 mg/dL 8.0-10.5 N - CT HEAD/BRAIN W/O [id number] 15:31:00 Name: SAFIA CHAIREZ [facility] : 1975 Age/S: 43 / F [address] [place] [address] Unit #: [id number] Loc: F[place] [address] Phys: Tai Adams DO Acct: [id number] Dis Date: Status: REG ER PHONE #: [phone] Exam Date: 03/09/2019 1511 FAX #: [phone] Reason: seizure then head trauma; hx seizure EXAMS: CPT CODE: [id number] CT HEAD/BRAIN W/O CONT [id number] PROCEDURE: CT HEAD WITHOUT CONTRAST INDICATION: seizure then head trauma; hx seizure COMPARISON: April 2016 TECHNIQUE: Noncontrast helical imaging performed skull base to the vertex. Multiplanar reformations are obtained. CT imaging performed at this location utilizes radiation dose optimization techniques which include one or more of the following: -Automated exposure control -Adjustment of the mA and/or kV according to patient size - Use of iterative reconstruction technique CT Radiation Dose DLP 419.70 mGy-cm FINDINGS: BRAIN PARENCHYMA: There are normal serna- white interfaces, sulci and gyri. No intra-axial or extra-axial hemorrhage, mass lesion or mass effect. The midline structures and patient monitor ior fossa contents are unremarkable. VENTRICLES: The ventr icular system is normal. The basilar cisterns are normal. ORBITS, MASTOIDS AND PARANASAL SINUSES: The visualized orbits and paranasa l sinuses are unremarkable. The mastoid air cells are clear. SKULL : The calvarium is intact. IMPRESSION: Negative noncontrast CT o f the brain. If there is continued clinical concern, further i maging options would include MRI. SL: [id number] at 1539 Reported and signed by: Juan Torres M.D. PAGE 1 Sign ed Report (CONTINUED) Name: SAFIA CHAIREZ [facility] : 1975 Age/S: 43 / F [address] [place] [address] Unit #: [id number] Loc: [place] [address] Phys: Tai Adams DO Acct: [id number] Dis Date: Status: REG ER PHONE #: [phone] Exam Date: 03/09/2019 1511 FAX #: [phone] Reason: seizure then head trau ma; hx seizure EXAMS: CPT CODE: [id number] CT HEAD/BRAIN W/O CONT [id number] <Continued> CC: Tai Adams DO Technologist:Haley Gerard RT(R) CTDI: DLP: Trnscb Date/Time: 03/09/2019 (0712) [email or web address] Orig Print D/T: S: 03/09/2019 (1534) CTDI: DLP: PAGE 2 Signed Report HAND 3 VIEW LT - [id number] 10:10:00 [place] [address] Patient Name: SAFIA CHAIREZ MR #: [id number] : 1975 Age/Sex: 43/F Req #: [id number] Adm Physician: Ordered by: ROSARIO HERNANDEZ MD Report #: [id number] Location: ED Room/Bed: Procedure: 03 HOPD/HAND 3 VIEW LT - HOPD Exam Date: 12/07/18 Ex am Time: 1000 REPORT STATUS: Signed Exam: Left Hand Series. History: Trauma to base of thumb by dog C omparison: None. Findings: No evidence of acute fracture or malalignmen t. There is soft tissue edema in the thumb, index finger, and thenar eminence. No evidence of radiopaque foreign body. Impression: No acute osseous a bnormality. Soft tissue edema at the thumb, index finger, and thenar eminen ce. Signed by: Dr. Linh Randall MD on 12/07/2018 10:13 AM Dictated By: LINH RANDALL MD 1013 Transcr ibed By: KELLIE on 12/07/18 1013 COPY TO: ROSARIO HERNANDEZ MD
--- OUTSIDE RECORDS SUMMARY | 2020-10-12 16:07 | XMS REPORT | Continuity of Care Document ---
Author Author [facility] [employer] SAFIA Gr [facility] [employer] Address Unknown Phone Unavailable Care Team Providers [employer] Librarian Name Role Phone 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) Active Prob renato 10/02/2020 [facility] Tinea unguium Active Problem 10/02/2020 [facility] Deficiency of other specified B group vitamins Active Diagnosis 10/02/2020 [facility] Morbid (severe) obesity due to excess calories Active Problem 10/02/2020 [facility] Pain in unspecified knee Active Diagnosis 10/02/2020 [facility] Bilateral primary osteoarthritis of knee Active Diagnosis 10/02/2020 [facility] Xerosis cutis Active Problem 10/02/2020 [facility] Peroneal tendinitis, left leg Active Problem 01/2020 [facility] Other hereditary and idiopathic neuropathies Active Problem 10/02/2020 [facility] Pain in right foot Active Problem 10/02/2020 [facility] Pain in left foot Active Problem 10/02/2020 [facility] Pain in unspecified joint Acti ve Diagnosis 1 12/02/2019 [facility] Inflammatory polyarthropathy A ctive Diagnosis 1 12/02/2019 [facility] Carpal tunnel syndrome, unspecified upper limb Active Diagnosis 10/02/2020 [facility] Vitamin D deficiency, unspecified Active Diagnosis 1 12/02/2019 [facility] Pain in right hip Active Diagnosis 10/02/2020 [facility] Rheumatoid arthritis, unspecified Active Diagnosis 1 12/02/2019 [facility] Pain in left shoulder Active Diagnosis 10/02/2020 [facility] Epilepsy, unspecified, not intractable, without status epilepticus Active Prob renato 10/02/2020 [facility] Pain in left elbow Active Diagnosis 10/02/2020 [facility] Anemia, unspecified Active Problem 10/02/2020 [facility] Other idiopathic peripheral autonomic neuropathy Active Problem 10/02/2020 [facility] Plantar fascial fibromatosis A ctive Problem 01/2020 [facility] Pain in unspecified foot Active Problem 10/02/2020 [facility] Unilateral primary osteoarthritis, left knee Active Problem 10/02/2020 [facility] Rheumatoid arthritis without rheumatoid factor, multiple sites Active Prob renato 10/02/2020 [facility] Unilateral primary osteoarthritis, right knee Active Problem 10/02/2020 [facility] Chronic pain syndrome Active Problem 10/02/2020 [facility] Calcaneal spur, unspecified foot Active Problem 01/2020 [facility] Unilateral primary osteoarthritis, right hip Active Problem 10/02/2020 [facility] Tinea pedis of both feet Active Problem 09/20/2016 [facility] Onychomycosis Active Problem 09/20/2016 [facility] Sprain of foot, left, subsequent encounter Active Problem 09/20/2016 [facility] Idiopathic neuropathy Active Problem 09/20/2016 [facility] Morbid obesity due to excess calories Active Problem [facility] Spondylosis without myelopathy or radicu lopathy, lumbosacral region Active Prob renato 10/02/2020 [facility] Calcaneal spur, left foot Acti ve Problem 01/2020 [facility] Pain in left ankle and joints of left foot Active Problem 10/02/2020 [facility] Spondylopathy in diseases classified els ewhere, lumbosacral region Active Prob renato 10/02/2020 [facility] Sacroiliitis, not elsewhere classified Active Problem 01/2020 [facility] Tarsal tunnel syndrome, left lower limb Active Problem 10/02/2020 [facility] Neuralgia and neuritis, unspecified Active Problem 01/2020 [facility] Tinea pedis Active Problem 10/02/2020 [facility] Nail dystrophy Active Problem 10/02/2020 [facility] Spondylopathy in diseases classified els ewhere, lumbar region Active Prob rentao 10/02/2020 [facility] Other specified inflammatory spondylopat hies, lumbar region Active Prob renato 10/02/2020 [facility] Spondylosis without myelopathy or radicu lopathy, lumbar region Active Prob renato 10/02/2020 [facility] Other specified inflammatory spondylopat hies, lumbosacral region Active Prob renato 10/02/2020 [facility] Pain in right ankle and joints of right foot Active Problem 10/02/2020 [facility] Vitamin B deficiency, unspecified Active Problem 01/2020 [facility] Spondylosis without myelopathy or radicu lopathy, cervical region Active Prob renato 10/02/2020 [facility] Other specified inflammatory spondylopat hies, cervical region Active Prob renato 10/02/2020 [facility] Medications Medication Details Route Status Patient Instructions Ordering Provider Order Date Source Orencia as directed Intravenous Active 250 MG Intravenous [facility] 09/07/2017 [facility] Lac-Hydrin 1 application to af fected area Externally Active 12 % Externally Twice a day [facility] 05/08/2017 [facility] Vitamin R92-Iplad Acid as dire cted Orally Active 500-400 MCG Orally 1 [facility] 05/08/2017 [facility] Ketoconazole 1 application to affected area Externally Active 2 % Externally Once a day [facility] 05/08/2017 [facility] Metanx 1 tablet Orally Active 3-35-2 MG Orally Twice a day [facility] 03/26/2017 [facility] Lamotrigine 2 tablets Orally Active 25 MG Orally Once a day [facility] Potassium 1 tablet Orally Active 800 mg Orally twice a d ay (bid) [facility] Ketoconazole 1 application to affected area Externally Active 2 % Externally Once a day [facility] Lac-Hydrin 1 application to af fected area Externally Active 12 % Externally Twice a day [facility] Dilantin 2 capsule Orally Active 100 mg Orally three yves es a day (tid) [facility] Multi For Her not defined Orally Active - Orally [facility] Omeprazole 1 capsule Orally Active 40 MG Orally Once a day [facility] Lasix 1 tablet Orally Active 80 MG Orally twice a da y (bid) [facility] Duloxetine HCl 1 capsule Orally Active 60 MG Orally twice a da y [facility] Klonopin 1 tablet Orally Active 0.5 MG Orally Twice a d ay [facility] Iron (Ferrous Gluconate) not d efined Orally Active 256 (28 Fe) MG Orally [facility] Orencia not defined Intravenous Active 250 MG Intravenous [facility] Seroquel 2 tablet at bedtime Orally Active 300 MG Orally Once a day [facility] Lamictal 2 tablets Orally Active 150 MG Orally morning 3 in PM [facility] Ativan 1 tablet as needed Orally Active 0.5 MG Orally as needed (prn) [facility] Lexapro 1 tablets Orally Active 5 MG Orally Once a day [facility] Ferrous Sulfate 1 tablet Orally Active 325 (65 Fe) MG Orally O nce a day [facility] Vitamin D 1 capsule Orally Active 1000 UNIT Orally Once a day [facility] Lasix 1 tablet Orally Active 40 mg Orally twice a da y (bid) [facility] Vitamin B12 2 tablet Orally Active 1000 Orally Once a day [facility] Plaquenil 2 tablets with food or milk Orally Active 200 MG Orally Once a day [facility] Sulfasalazine 2 tablets Orally Active 500 mg Orally twice a d ay (bid) [facility] Lamotrigine 2 tablets Orally Active 25 MG Orally Once a day [facility] Duloxetine HCl 1 capsule Orally Active 60 MG Orally twice a da y [facility] Seroquel 2 tablet at bedtime Orally Active 300 MG Orally Once a day [facility] Dilantin 2 capsule Orally Active 100 mg Orally three yves es a day (tid) [facility] Ativan 1 tablet as needed Orally Active 0.5 MG Orally as needed (prn) [facility] Vitamin B12 2 tablet Orally Active 1000 Orally Once a day [facility] Lexapro 1 tablets Orally Active 5 MG Orally Once a day [facility] Lamictal 2 tablets Orally Active 150 MG Orally morning 3 in PM [facility] Plaquenil 2 tablets with food or milk Orally Active 200 MG Orally Once a day [facility] Sulfasalazine 2 tablets Orally Active 500 mg Orally twice a d ay (bid) [facility] Omeprazole 1 capsule Orally Active 40 MG Orally Once a day [facility] Lasix 1 tablet Orally Active 40 mg Orally twice a da y (bid) [facility] Orencia as directed Intravenous Active 250 MG Intravenous [facility] Vitamin D 1 capsule Orally Active 1000 UNIT Orally Once a day [facility] Ferrous Sulfate 1 tablet Orally Active 325 (65 Fe) MG Orally O nce a day [facility] Vitamin V59-Gkbmx Acid as dire cted Orally Active 500-400 MCG Orally 1 [facility] Vitamin D 1 capsule Orally Active 85127 UNIT Orally weekl y [facility] Potassium 1 tablet Orally Active 800 mg Orally twice a d ay (bid) [facility] Lyrica 1 capsule Orally Active 100 MG Orally Twice a d ay [facility] Ibuprofen 1 tablet Orally Active 800 MG Orally Three vyes es a day [facility] Allergies, Adverse Reactions, Alerts Substance Category Reaction Severity Reaction type Status Date Reported Comments Source Penicillin Adverse Reaction Info Not Available Adverse Reaction Active 08/17/2017 [facility] Keflex Adverse Reaction Info Not Available Adverse Reaction Active 06/10/2018 [facility] Demerol Adverse Reaction Info Not Available Adverse Reaction Active 06/10/2018 [facility] Immunizations No Data Provided for This Section Results No Data Provided for This Section Pathology Reports No Data Provided for This Section Diagnostic Reports No Data Provided for This Section Consultation Notes No Data Provided for This Section Discharge Summaries No Data Provided for This Section History and Physicals No Data Provided for This Section Vital Signs Vital Sign Value Date Comments Source Weight 198 06/10/2018 [facility] Height 67 0 06/10/2018 [facility] Respitory Rate 16 06/10/2018 [facility] Diastolic (mm Hg) 64 06/10/2018 [facility] Systolic (mm Hg) 105 06/10/2018 [facility] Temperature Oral (F) 98 F 06/10/2018 [facility] Heart Rate 67 06/10/2018 [facility] Weight 216 05/13/2018 [facility] Respitory Rate 16 05/13/2018 [facility] Diastolic (mm Hg) 78 05/13/2018 [facility] Systolic (mm Hg) 110 05/13/2018 [facility] Temperature Oral (F) 98 F 05/13/2018 [facility] Heart Rate 84 05/13/2018 [facility] Weight 293 09/07/2017 [facility] Systolic (mm Hg) 111 09/07/2017 [facility] Respitory Rate 16 09/07/2017 [facility] Heart Rate 80 09/07/2017 [facility] Temperature Oral (F) 97.8 F 09/07/2017 [facility] Diastolic (mm Hg) 70 09/07/2017 [facility] Weight 288 08/17/2017 [facility] Systolic (mm Hg) 127 08/17/2017 [facility] Respitory Rate 18 08/17/2017 [facility] Heart Rate 80 08/17/2017 [facility] Temperature Oral (F) 97.5 F 08/17/2017 [facility] Diastolic (mm Hg) 67 08/17/2017 [facility] Weight 288 08/07/2017 [facility] Systolic (mm Hg) 120 08/07/2017 [facility] Respitory Rate 16 08/07/2017 [facility] Heart Rate 79 08/07/2017 [facility] Temperature Oral (F) 97.1 F 08/07/2017 [facility] Diastolic (mm Hg) 60 08/07/2017 [facility] Weight 288 06/10/2017 [facility] Systolic (mm Hg) 140 06/10/2017 [facility] Respitory Rate 16 06/10/2017 [facility] Heart Rate 89 06/10/2017 [facility] Temperature Oral (F) 98 F 06/10/2017 [facility] Diastolic (mm Hg) 88 06/10/2017 [facility] Weight 299 05/18/2017 [facility] Systolic (mm Hg) 138 05/18/2017 [facility] Respitory Rate 14 05/18/2017 [facility] Heart Rate 80 05/18/2017 [facility] Temperature Oral (F) 97.3 F 05/18/2017 [facility] Diastolic (mm Hg) 75 05/18/2017 [facility] Weight 288 05/11/2017 [facility] Systolic (mm Hg) 134 05/11/2017 [facility] Respitory Rate 16 05/11/2017 [facility] Heart Rate 89 05/11/2017 [facility] Temperature Oral (F) 98 F 05/11/2017 [facility] Diastolic (mm Hg) 65 05/11/2017 [facility] Weight 297 04/10/2017 [facility] Systolic (mm Hg) 133 04/10/2017 [facility] Respitory Rate 16 04/10/2017 [facility] Heart Rate 94 04/10/2017 [facility] Temperature Oral (F) 97.7 F 04/10/2017 [facility] Diastolic (mm Hg) 73 04/10/2017 [facility] Weight 300 03/23/2017 [facility] Systolic (mm Hg) 131 03/23/2017 [facility] Respitory Rate 18 03/23/2017 [facility] Heart Rate 76 03/23/2017 [facility] Temperature Oral (F) 97.5 F 03/23/2017 [facility] Diastolic (mm Hg) 70 03/23/2017 [facility] Encounters Location Location Details Encounter Type Encounter Number Reason For Visit Attending Provider ADM Date DC Date Status Source [facility] degenerative changes in my foot [id number] 09/18/2016 09/18/2016 [facility] Procedures No Data Provided for This Section Assessment and Plan No Data Provided for This Section Plan of Care No Data Provided for This Section Social History Social History Date Source Social History ElementQualifiersDate Rep orted Do you smoke? . Answer: Yes Sep 19, 2016 Do you drink alcohol? . Status: No Sep 19, 2016 Occupation: . Disabled Sep 19, 2016 09/19/2016 [facility] Family History Value Date S ource QualifierDescriptionCommentDate Reported Maternal Grandmother Comment not available Sep [...] Other: Comment not available Sep 19, 2016 09/20/2016 [facility] Advance Directives No Data Provided for This Section Functional Status No Data Provided for This Section
--- OUTSIDE RECORDS SUMMARY | 2020-10-12 16:07 | XMS REPORT | Clinical Summary ---
Author Author [facility] Organization [facility] Address Unknown Phone Unavailable Care Team Providers Care Slitter Service And Setter Name Role Phone Vonda Olivas MD PCP [phone] Allergies Comments Active Allergy Reactions Severity Noted Date Meperidine Other (See High 08/03/2019 Comments) Cephalexin Hives 08/03/2019 Penicillin G Hives 08/03/2019 Medications End Date Status Medication Sig Dispensed Refills Start Date Active clonAZEPAM (KlonoPIN) 0.5 TK 1 T PO Q 0 09/0 7/201 MG tablet 12 H PRA 9 Active DULoxetine (CYMBALTA) 60 Take 60 mg by 0 07/29 /201 MG capsule mouth 2 (two) 9 times a day. Active lamoTRIgine (LaMICtal) TK 2 TS PO IN 1 01 150 MG tablet THE MORNING 9 AND 3 TS IN THE EVENING Active pantoprazole (PROTONIX) Take 40 mg by 0 40 MG EC tablet mouth 2 (two) 9 times a day. 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 Problems No known active problems Encounters Care Team Description Date Type Specialty Blanco Simon MD Primary osteoarthritis of right knee (Pr imary Dx) 01/09/2020 Office Visit Orthopedic Surgery Blanco Simon MD Primary osteoarthritis of right knee (Pr imary Dx); Chondromalacia of knee, right 12/16/2019 Office Visit Orthopedic Surgery Blanco Simon MD Chondromalacia, knee, right; Patellofemoral pain syndrome of right knee 12/16/2019 Hospital Radiology Encounter Joseline Chua MA Chondromalacia, knee, right (Primary Dx) ; Patellofemoral pain syndrome of right knee 12/08/2019 Orders Only Orthopedic Surgery Blanco Simon MD Chondromalacia of knee, right (Primary D x); Patellofemoral pain syndrome of right knee; Right knee pain, unspecified chronicity 12/05/2019 Office Visit Orthopedic Surgery Blanco Simon MD Arthritis of right acromioclavicular aniceto nt (Primary Dx); Right shoulder pain, unspecified chronicity 10/21/2019 Office Visit Orthopedic Surgery after 10/12/2019 Immunizations Name Administration Dates Next Due Pneumococcal Conjugate 09/10/2016 13-[facility] Surgical History Surgery Date Site/Laterality Comments ABDOMINAL SURGERY bowel obstructio n 04/17 ORTHOPEDIC SURGERY Left shoulder both hands BARIATRIC SURGERY Gastric by-pass 10-14-17 Medical History Medical History Date Comments Anemia Several years ago Arthritis Rheumatoid and osteopenia Family History Medical History Relation Name Comments Diabetes Father Braulio Duran Heart attack Father Braulio Duran Heart disease Father Braluio Duran Diabetes Maternal Zuleika South Grandmother Cancer Mother Ana Maria Duran Diabetes Mother Ana Maria Duran Heart disease Mother Ana Maria w/ end sta ge congestive heart failure [place] Cancer Paternal Aunt Zulema Pancreatic Canc er [place] Relation Name Status Comments Father Braulio Honeycuttomdavid Maternal Grandmother Zuleika [place] Mother Ana Maria [place] Paternal Aunt Zulema Duran Social History Date Tobacco Use Types Packs/Day Years Used Former Smoker Cigarettes 1 28 Smokeless Tobacco: Never Used Drinks/Week oz/Week Comments Alcohol Use Never Alcohol Habits Answer Date Recorded How often do you have a drink containing alcohol? Never 08/04/2019 How many drinks containing alcohol do you have on No t asked a typical day when you are drinking? How often do you have six or more drinks on one Not asked occasion? Sex Assigned at Date Recorded Not on file Last Filed Vital Signs Reading Time Taken Comments Vital Sign 99/64 10/21/2019 1:25 PM CODING COMPLIANCE AUDITOR Blood Pressure 76 10/21/2019 1:25 PM CODING COMPLIANCE AUDITOR Pulse - - Temperature - - Respiratory Rate - - Oxygen Saturation - - Inhaled Oxygen Concentration 77.1 kg (170 lb) 12/16/2019 11:27 AM CODING COMPLIANCE AUDITOR Weight 142.2 cm (4' 8") 12/16/2019 11:27 AM CODING COMPLIANCE AUDITOR Height 38.11 12/16/2019 11:27 AM CODING COMPLIANCE AUDITOR Body Mass Index Plan of Treatment Health Maintenance Due Date Last Done Comments CERVICAL CANCER SCREENING 1994 INFLUENZA VACCINE 06/30/2020 11/26/2018, 11/04/2018, 11/01/2018, Additional history exists Procedures Comments Procedure Name Priority Date/Time Associated Diag nosis MS ARTHROCENTESIS Routine 01/09/2020 Primary oste oarthritis of ASPIR&/INJ MAJOR JT/BURSA 1:30 PM CODING COMPLIANCE AUDITOR right knee W/O US MS ARTHROCENTESIS Routine 12/16/2019 Chondromalac ia of knee, ASPIR&/INJ MAJOR JT/BURSA 11:00 AM CODING COMPLIANCE AUDITOR right W/O US MRI KNEE WO CONTRAST Routine 12/16/2019 Chondroma lacia, knee, RIGHT 8:15 AM CODING COMPLIANCE AUDITOR right Patellofemoral pain syndrome of right knee XR KNEE 4+ VW RIGHT Routine 12/05/2019 Right knee pain, 11:40 AM CODING COMPLIANCE AUDITOR unspecified chronicity MS ARTHROCENTESIS Routine 12/05/2019 Chondromalac ia of knee, ASPIR&/INJ MAJOR JT/BURSA 11:20 AM CODING COMPLIANCE AUDITOR right W/O US XR SHOULDER 2+ VW RIGHT Routine 10/21/2019 Right shoulder pain, 1:22 PM CODING COMPLIANCE AUDITOR unspecified chronicity after 10/12/2019 Results * Large Joint Arthrocentesis: knee, R knee (01/09/2020 1:30 PM CODING COMPLIANCE AUDITOR) Narrative Performed At Blanco Simon MD 01/09/2020 1: 54 PM Large Joint Arthrocentesis: knee, R portere e Consent given by: patient Timeout: Immediately prior to procedure a time out was called to verify the correct patient, procedure, equipme nt, software support engineer and site/side marked as required Supporting Documentation Indications: pain Procedure Details Preparation: Patient was prepped and dr black in the usual sterile fashion Ultrasound guided: no Platelet Rich Plasma Used: no PRP Use d Location: knee - R knee Right side: Needle size: 22 G Approach: anterolateral Right knee medications administered: 2 mL sodium hyaluronate (viscosup) 30 mg/2 mL Patient tolerance: patient tolerated th e procedure well with no immediate complications * Large Joint Arthrocentesis: knee, R knee (12/16/2019 11:00 AM CODING COMPLIANCE AUDITOR) Narrative Performed At Blanco Simon MD 12/18/2019 8: 31 PM Large Joint Arthrocentesis: knee, R kne e Consent given by: patient Timeout: Immediately prior to procedure a time out was called to verify the correct patient, procedure, equipme nt, software support engineer and site/side marked as required Supporting Documentation Indications: pain Procedure Details Preparation: Patient was prepped and dr black in the usual sterile fashion Ultrasound guided: no Platelet Rich Plasma Used: no PRP Use d Location: knee - R knee Right side: Needle size: 22 G Approach: anterolateral Right knee medications administered: 4 mL hyaluronate sodium, stabilized 88 mg/4 mL Patient tolerance: patient tolerated th e procedure well with no immediate complications * MRI Knee Right Wo Contrast (12/16/2019 8:15 AM CODING COMPLIANCE AUDITOR) Specimen Addenda Addendum by Hari Mejia MD on 12/16/2019 9:00 AM ADDENDUM #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 2.Mild medial and lateral compartment chondromalacia. 3.Grade 1 MCL sprain versus sequela of prior injury. 4.Tiny Aldridge's cyst. Narrative Performed At [facility] EXAMINATION: MRI KNEE WO CONTRAST RIG HT CLINICAL HISTORY: M94.261 Chondromala christopher right knee, M22.2X1 Patellofemoral disorders right knee, evaluate menisc us TECHNIQUE: Multiplanar multisequence MR imaging of the knee was performed without contrast. COMPARISON: 12/05/2019 FINDINGS: Cruciate ligaments: Intact. Collateral ligaments: Faint fluid signa l abnormality along the medial collateral ligament may be sequela of prior injury or reflect low-grade sprain. Fibular collateral ligament, biceps femoris and IT band are intact. Medial Meniscus: Medial meniscus intact . Medial Compartment Cartilage: Partial-t hickness cartilage loss with flap formation (series 6 image 13) involving the medial femoral condyle. Lateral Meniscus: Lateral meniscus inta ct. Lateral Compartment Cartilage: Mildly t hinned with areas of surface fissuring involving the far posterior lateral fem oral condyle Patellofemoral Compartment:Areas of ful l-thickness cartilage loss involving the medial patellar facet, median ridge wit h subchondral cystic change and areas of high-grade partial-thickness cartilage loss involving the lateral patellar facet, and trochlea. Extensor mechanism: Intact. Mild edema in the suprapatellar fat pad. Effusion: Physiologic joint fluid Bone marrow: Subchondral cystic changes of the patella. No fracture or marrow replacing lesion. Soft tissues: Tiny Aldridge's cyst. Nonspe cific prepatellar/infrapatellar soft tissue swelling. IMPRESSION: 1.Moderate to severe patellofemoral com partment degenerative changes and associated edema within the suprapatell ar fat pad. 2.Mild medial and lateral compartment c hondromalacia. 3.Grade 1 MCL sprain versus sequela of prior injury. 4.Tiny Aldridge's cyst. [facility] [id number] Procedure Note Hm Interface, Radiology Results Incoming - 12/16/2019 8:58 AM CODING COMPLIANCE AUDITOR EXAMINATION: MRI KNEE WO CONTRAST RIGHT CLINICAL HISTORY: M94.261 Chondromalacia right knee, M22.2X1 Patellofemoral disorders right knee, evaluate meniscus TECHNIQUE: Multiplanar multisequence MR imaging of the knee was performed without contrast. COMPARISON: 12/05/2019 FINDINGS: Cruciate ligaments: Intact. Collateral ligaments: Faint fluid signal abnormality along the medial collateral ligament may be sequela of prior injury or reflect low-grade sprain. Fibular collateral ligament, biceps femoris and IT band are intact. Medial Meniscus: Medial meniscus intact. Medial Compartment Cartilage: Partial-thickness cartilage loss with flap formation (series 6 image 13) involving the medial femoral condyle. Lateral Meniscus: Lateral meniscus intact. Lateral Compartment Cartilage: Mildly thinned with areas of surface fissuring involving the far posterior lateral femoral condyle Patellofemoral Compartment:Areas of full-thickness cartilage loss involving the medial patellar facet, median ridge with subchondral cystic change and areas of high-grade partial-thickness cartilage loss involving the lateral patellar facet, and trochlea. Extensor mechanism: Intact. Mild edema in the suprapatellar fat pad. Effusion: Physiologic joint fluid Bone marrow: Subchondral cystic changes of the patella. No fracture or marrow replacing lesion. Soft tissues: Tiny Aldridge's cyst. Nonspecific prepatellar/infrapatellar soft tissue swelling. IMPRESSION: 1.Moderate to severe patellofemoral comp artment degenerative changes and associated edema within the suprapatellar fat pad. 2.Mild medial and lateral compartment ch ondromalacia. 3.Grade 1 MCL sprain versus sequela of p rior injury. 4.Tiny Aldridge's cyst. [facility] [id number] Performing Organization Address City/[facility] Code P norma Number [facility] [address] [id number] * XR Knee 4+ Vw Right (12/05/2019 11:40 AM CODING COMPLIANCE AUDITOR) Specimen Narrative Performed At [facility], lateral, tunnel, and sunrise views of the right knee show normal osseous structures. There is mild med ial patellofemoral joint space narrowing with very small early margina l osteophytes in the patellofemoral joint. The soft tissues are normal. Performing Organization Address City/[facility] Code P nroma Number [facility] [address] [id number] * Large Joint Arthrocentesis: knee, R knee (12/05/2019 11:20 AM CODING COMPLIANCE AUDITOR) Narrative Performed At Blanco Simon MD 12/06/2019 8:4 1 PM Large Joint Arthrocentesis: knee, R kne e Consent given by: patient Timeout: Immediately prior to procedure a time out was called to verify the correct patient, procedure, equipme nt, software support engineer and site/side marked as required Supporting Documentation Indications: pain Procedure Details Preparation: Patient was prepped and dr black in the usual sterile fashion Ultrasound guided: no Platelet Rich Plasma Used: no PRP Use d Location: knee - R knee Right side: Needle size: 22 G Approach: anterolateral Right knee medications administered: 2 mL lidocaine 20 mg/mL (2 %); 6 mg betamethasone acetate & sodium phosphat e 6 mg/mL Patient tolerance: patient tolerated th e procedure well with no immediate complications * XR Shoulder 2+ Vw Right (10/21/2019 1:22 PM CODING COMPLIANCE AUDITOR) Specimen Narrative Performed At [facility], axial lateral, and outlet views of the right shoulder show normal osseous structures. The glenohumeral joint space is well-preserved aligned. The acromiohumeral interval is normal. There is moderate acromioclavicular arthritis. The soft tissues are normal. 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
== END 2020-10-12 16:14 | disposition home or self-care (01) ==
LOC: FSED 15:15
DX: M79.652 Pain in left thigh (principal); S70.12XA Contusion of left thigh, initial encounter; W01.0XXA Fall on same level from slipping, tripping and stumbling without subsequent striking against object, initial encounter; Y93.01 Activity, walking, marching and hiking; G40.909 Epilepsy, unspecified, not intractable, without status epilepticus; F31.9 Bipolar disorder, unspecified; M06.9 Rheumatoid arthritis, unspecified; F17.210 Nicotine dependence, cigarettes, uncomplicated
CPT/HCPCS: 73502; 73552; 81025; 96372; 99283; J1885